=== PATIENT | male | born 1945 | race Caucasian/White ===

== ENCOUNTER 2021-02-09 08:14 | Emergency (ER) | payer MEDICARE ==
--- NOTE | 2021-02-09 09:02 | ED ---
General Adult HPI - General Chief complaint: Upper Respiratory Infection Stated complaint: Fever/cough/vomiting Time Seen by Provider: 02/09/21 08:25 Source: patient Mode of arrival: ambulatory Limitations: no limitations - History of Present Illness Initial comments: Dictation was produced using [employer] dictation software. please excuse any grammatical, word or spelling errors. This patient was cared for during a federal and state declared state of emergency secondary to Covid 19 Chief Complaint: 75-year-old male presents emergency department for fever and cough History of Present Illness: This 75-year-old male who presents to the emergency department for fever and cough. Symptoms began yesterday. Patient states that he has been having postnasal drip. States that he had a couple episodes of nausea and vomiting. Most of the day today he's been feeling fine. He has had his vaccinations for COVID-19. His second dose of moderna vaccine was in the beginning of January. No obvious sick contacts. Denies any abdominal pain. No rash. No burning on urination or any other urinary symptoms. The ROS documented in this emergency department record has been reviewed and confirmed by me. Those systems with pertinent positive or negative responses have been documented in the HPI. All other systems are other negative and/or noncontributory. PHYSICAL EXAM: General Impression: Alert and oriented x3, not in acute distress HEENT: Normocephalic atraumatic, extra-ocular movements intact, pupils equal and reactive to light bilaterally, mucous membranes moist. Cardiovascular: Heart regular rate and rhythm Chest: Able to complete full sentences, no retractions, no tachypnea Abdomen: abdomen soft, non-tender, non-distended, no organomegaly Musculoskeletal: Pulses present and equal in all extremities, no peripheral edema Motor: no focal deficits noted Neurological: CN II-XII grossly intact, no focal motor or sensory deficits noted Skin: Intact with no visualized rashes Psych: Normal affect and mood ED course: 75-year-old well-appearing male, vaccinated for COVID-19 presents emergency department for URI symptoms. vital signs upon arrival shows temperature 99.6, heart rate of 118, rest of vital signs within acceptable limits. Patient is well-appearing at bedside. Laboratory evaluation obtaining is leukocytosis of 20.7 with neutrophils of 18.4. Metabolic panel is unremarkable. Negative for influenza RSV or coronavirus per chest x-ray is nonacute. Patient reevaluated at bedside at 10:30 AM in stable medical condition. Disposition options were discussed with patient. He feels well and is having minor symptoms wants to be discharged. His primary care physician. He is reliable patient has good social situation can seek medical attention if he has any acute worsening symptoms. Patient understands that there is concerns of bacterial infection that his symptoms may acutely worsened causing worsening breathing. Patient given 1 dose of ceftriaxone. Given prescription for Augmentin and azithromycin. His agreeable to plan. Patient be discharged. - Related Data Previous Rx's Medication Instructions Recorded Amoxic-Pot Clav 875-125Mg 1 tab PO BID 7 Days #14 tab 02/09/21 [Augmentin 875-125] Azithromycin [Zithromax Z-pack] 0 mg PO DIRECTED #6 tab 02/09/21 Allergies Allergy/AdvReac Type Severity Reaction Status Date / Time No Known Allergies Allergy Verified 02/09/21 08:29 Review of Systems ROS Statement: Those systems with pertinent positive or pertinent negative responses have been documented in the HPI. ROS Other: All systems not noted in ROS Statement are negative. Past Medical History Past Medical History: No Reported History History of Any Multi-Drug Resistant Organisms: None Reported Past Surgical History: No Surgical Hx Reported Past Psychological History: No Psychological Hx Reported Smoking Status: Never smoker Past Alcohol Use History: Occasional Past Drug Use History: None Reported General Exam Limitations: no limitations Course Vital Signs 02/09/21 02/09/21 08:23 10:05 Temperature 99.6 F 98.8 F Pulse Rate 118 H 107 H Respiratory 21 18 Rate Blood Pressure 123/68 O2 Sat by Pulse 95 94 L Oximetry Medical Decision Making - Lab Data Result diagrams: 02/09/21 09:05 02/09/21 09:05 Lab Results 02/09/21 02/09/21 02/09/21 Range/Units 08:39 09:05 09:05 WBC 20.7 H (3.8-10.6) k/uL RBC 5.87 (4.30-5.90) m/uL Hgb 16.2 (13.0-17.5) gm/dL Hct 47.2 (39.0-53.0) % MCV 80.4 (80.0-100.0) fL MCH 27.5 (25.0-35.0) pg MCHC 34.3 (31.0-37.0) g/dL RDW 13.6 (11.5-15.5) % Plt Count 330 (150-450) k/uL MPV 6.3 Neutrophils % 89 % Lymphocytes % 4 % Monocytes % 4 % Eosinophils % 3 % Basophils % 1 % Neutrophils # 18.4 H (1.3-7.7) k/uL Lymphocytes # 0.8 L (1.0-4.8) k/uL Monocytes # 0.8 (0-1.0) k/uL Eosinophils # 0.6 (0-0.7) k/uL Basophils # 0.1 (0-0.2) k/uL Sodium 137 (137-145) mmol/L Potassium 4.8 (3.5-5.1) mmol/L Chloride 102 (98-107) mmol/L Carbon Dioxide 27 (22-30) mmol/L Anion Gap 8 mmol/L BUN 17 (9-20) mg/dL Creatinine 1.06 (0.66-1.25) mg/dL Est GFR (CKD-EPI)AfAm 80 (>60 ml/min/1.73 sqM) Est GFR (CKD-EPI)NonAf 69 (>60 ml/min/1.73 sqM) Glucose 125 H (74-99) mg/dL Calcium 9.7 (8.4-10.2) mg/dL Influenza Type A (PCR) Not Detected (Not Detectd) Influenza Type B (PCR) Not Detected (Not Detectd) RSV (PCR) Not Detected (Not Detectd) SARS-CoV-2 (PCR) Not Detected (Not Detectd) Disposition Clinical Impression: URI (upper respiratory infection) Disposition: HOME SELF-CARE Condition: Fair Instructions (If sedation given, give patient instructions): Upper Respiratory Infection (ED) Prescriptions: Amoxic-Pot Clav 875-125Mg [Augmentin 875-125] 1 tab PO BID 7 Days #14 tab Azithromycin [Zithromax Z-pack] 0 mg PO DIRECTED #6 tab Is patient prescribed a controlled substance at d/c from ED?: No Referrals: Josue Cornell DO [Primary Care Provider] - 1-2 days Time of Disposition: 10:37
[2021-02-09 09:17] LABS: Basophils # (A) 0.1 k/uL (0-0.2); Basophils % (A) 1 %; Eosinophils # (A) 0.6 k/uL (0-0.7); Eosinophils % (A) 3 %; HCT 47.2 % (39.0-53.0); HGB 16.2 gm/dL (13.0-17.5); Lymphocytes # (A) 0.8 k/uL (1.0-4.8); Lymphocytes % (A) 4 %; MCH 27.5 pg (25.0-35.0); MCHC 34.3 g/dL (31.0-37.0); MCV 80.4 fL (80.0-100.0); Mean Platelet Volume 6.3; Monocytes # (A) 0.8 k/uL (0-1.0); Monocytes % (A) 4 %; Neutrophils # (A) 18.4 k/uL (1.3-7.7); Neutrophils % (A) 89 %; Platelet Count 330 k/uL (150-450); RBC 5.87 m/uL (4.30-5.90); RDW 13.6 % (11.5-15.5); WBC 20.7 k/uL (3.8-10.6)
--- NOTE | 2021-02-09 09:23 | XR ---
EXAMINATION TYPE: XR chest 1V portable DATE OF EXAM: 02/09/2021 COMPARISON: None INDICATION: Cough, fever TECHNIQUE: Single frontal view of the chest is obtained. FINDINGS: The heart size is normal. The pulmonary vasculature is normal. The lungs are clear. IMPRESSION: 1. No acute pulmonary process.
[2021-02-09 09:29] LABS: Calcium 9.7 mg/dL (8.4-10.2); Potassium 4.8 mmol/L (3.5-5.1)
[2021-02-09 10:11] VITALS: RESP 18
[2021-02-09] MEDS ORDERED: cefTRIAXone IN SWFI 1,000 MG/10 ML SYRINGE IVP STA (10:13)
[2021-02-09 10:37] VITALS: BP 141/79; PULSE 100; TEMP 99.7
[2021-02-09] MEDS ORDERED: KETOROLAC 15 MG/ML 1 ML VIAL IM STA (10:37)
[2021-02-09] MEDS ORDERED: KETOROLAC 15 MG/ML 1 ML VIAL IVP STA (10:38)
== END 2021-02-09 10:48 | disposition home or self-care (01) ==
LOC: EC 08:14
DX: J06.9 Acute upper respiratory infection, unspecified (principal)
CPT/HCPCS: 36415; 80048; 85025; 87636; 71045; 99284; 96374; 96375; J0696; J1885

== ENCOUNTER 2021-07-03 22:25 | Emergency (ER) | payer MEDICARE ==
[2021-07-03 22:36] VITALS: BP 159/71; PULSE 84; RESP 20; TEMP 98.5
--- NOTE | 2021-07-03 23:10 | XR ---
EXAMINATION TYPE: XR ribs RT w pa chest xray DATE OF EXAM: 07/03/2021 COMPARISON: 02/09/2021 HISTORY: Fall. Rib pain TECHNIQUE: 5 views FINDINGS: Heart and mediastinum are normal. Lungs are clear. Diaphragm is normal. Bony thorax is inta ct. The right ribs appear intact. There is no pleural effusion or pneumothorax. IMPRESSION: No rib fracture seen. Normal chest. No adverse change.
[2021-07-03] MEDS ORDERED: CYCLOBENZAPRINE 5 MG TAB PO STA (23:54)
--- NOTE | 2021-07-03 23:56 | ED ---
Fall HPI - General Chief Complaint: Fall Stated Complaint: Rib pain from fall Time Seen by Provider: 07/03/21 23:34 Source: patient Mode of arrival: ambulatory - History of Present Illness Initial Comments: 75-year-old male presents to the emergency department with a chief complaint rib pain. Patient reports this started 2 days ago after he fell to the ground from a trip and fall accident. Patient reports he may to some jerking movement which causes him to have pain in the right-sided ribs. States there was no fracture medication injury into the wrist. States now the pain is exacerbated with left right rotation of his torso. Denies exacerbation of the pain when taking deep breaths. Denies any ecchymotic or erythematous regions along the ribs. Denies any unilateral leg swelling or dyspnea. - Related Data Previous Rx's Medication Instructions Recorded Amoxic-Pot Clav 875-125Mg 1 tab PO BID 7 Days #14 tab 02/09/21 [Augmentin 875-125] Azithromycin [Zithromax Z-pack] 0 mg PO DIRECTED #6 tab 02/09/21 Cyclobenzaprine [Flexeril] 5 mg PO TID PRN #15 tablet 07/03/21 Allergies Allergy/AdvReac Type Severity Reaction Status Date / Time No Known Allergies Allergy Verified 02/09/21 08:29 Review of Systems ROS Statement: Those systems with pertinent positive or pertinent negative responses have been documented in the HPI. ROS Other: All systems not noted in ROS Statement are negative. Past Medical History Past Medical History: No Reported History History of Any Multi-Drug Resistant Organisms: None Reported Past Surgical History: No Surgical Hx Reported Past Psychological History: No Psychological Hx Reported Smoking Status: Never smoker Past Alcohol Use History: Occasional Past Drug Use History: None Reported General Exam Limitations: no limitations General appearance: alert, in no apparent distress Head exam: Present: atraumatic, normocephalic, normal inspection Eye exam: Present: normal appearance, PERRL Pupils: Present: normal accommodation ENT exam: Present: normal exam, normal oropharynx, mucous membranes moist Neck exam: Present: normal inspection, full ROM. Absent: tenderness Respiratory exam: Present: normal lung sounds bilaterally, chest wall tenderness (Tenderness over the right side of the ribs). Absent: respiratory distress Cardiovascular Exam: Present: regular rate, normal rhythm, normal heart sounds. Absent: systolic murmur GI/Abdominal exam: Present: soft. Absent: distended, tenderness, guarding, rebound Extremities exam: Present: normal inspection, full ROM, normal capillary refill. Absent: tenderness, pedal edema, joint swelling Back exam: Present: normal inspection, full ROM. Absent: tenderness Neurological exam: Present: alert, oriented X3 Psychiatric exam: Present: normal affect, normal mood Skin exam: Present: warm, dry, intact, normal color Course Vital Signs 07/03/21 22:32 Temperature 98.5 F Pulse Rate 84 Respiratory 20 Rate Blood Pressure 159/71 O2 Sat by Pulse 96 Oximetry Medical Decision Making - Medical Decision Making 75-year-old male presents to emergency Department with a chief complaint rib pain. Physical examination, patient has tenderness over the right-sided ribs. Patient exacerbated with left and right rotation. X-ray of the chest and right ribs is unremarkable. Patient will be given Flexeril. I suspect the pain is likely musculoskeletal in nature at this time. Return parameters were discussed patient is understanding and agreeable. PCP follow-up advised. Case discussed with physician. Disposition Clinical Impression: Fall, Chest wall pain Disposition: HOME SELF-CARE Condition: Stable Instructions (If sedation given, give patient instructions): Rib Contusion (ED) Additional Instructions: Please return to the Emergency Department if symptoms worsen or any other concerns. Is patient prescribed a controlled substance at d/c from ED?: No Referrals: Josue Cornell DO [Primary Care Provider] - 1-2 days Time of Disposition: 23:56
== END 2021-07-04 00:40 | disposition home or self-care (01) ==
LOC: EC 22:25
DX: R07.89 Other chest pain (principal); W01.0XXA Fall on same level from slipping, tripping and stumbling without subsequent striking against object, initial encounter
CPT/HCPCS: 99283

== ENCOUNTER → 2023-01-05 | Outpatient (CLI) | payer MEDICARE ==
--- NOTE | 2023-01-05 15:24 | US ---
EXAMINATION TYPE: US carotid duplex BILAT DATE OF EXAM: 01/05/2023 COMPARISON: NONE CLINICAL HISTORY: H53.19 SUBJECTIVE VISUAL DISTURBANCES. Pt states vision disturbances TECHNIQUE: Carotid duplex ultrasound examination. Indirect Doppler criteria was utilized. FINDINGS: EXAM MEASUREMENTS: RIGHT: Peak Systolic Velocity (PSV) cm/sec ----- Right CCA: 110 ----- Right ICA: 187 ----- Right ECA: 122 ICA/CCA ratio: 1.7 RIGHT: End Diastole cm/sec ----- Right CCA: 14.3 ----- Right ICA: 37.0 ----- Right ECA: 6.6 LEFT: Peak Systolic Velocity (PSV) cm/sec ----- Left CCA: 137 ----- Left ICA: 211 ----- Left ECA: 178 ICA/CCA ratio: 1.5 LEFT: End Diastole cm/sec ----- Left CCA: 17.6 ----- Left ICA: 17.2 ----- Left ECA: 4.6 VERTEBRALS (direction of flow): Right Vertebral: Antegrade Left Vertebral: Antegrade Rhythm: Normal [employer] TESTING [employer]PERVISOR NOTES: Slightly elevated velocities bilaterally IMPRESSION: 50-69% stenosis of the bilateral carotid bifurcations by peak systolic velocity. Criteria for Assigning % of Stenosis / Diameter reduction (Estimation based on the indirect measurements of the internal carotid artery velocities (ICA PSV). 1. Normal (no stenosis)=ICA PSV < 125 cm/s: ratio < 2.0: ICA EDV<40 cm/s. 2. Less than 50% stenosis=ICA PSV < 125 cm/s: ratio < 2.0: ICA EDV<40 cm/s. 3. 50 to 69% stenosis=ICA PSV of 125 to 230 cm/s: ration 2.0 ? 4.0: ICA EDV 40-100 cm/s. 4. Greater than 70% stenosis to near occlusion= ICA PSV > 230 cm/s: ratio > 4.0: ICA EDV > 100 cm/s. 5. Near occlusion= ICA PSV velocities may be low or undetectable: variable ratio and ICA EDV. 6. Total occlusion=unable to detect flow.
--- NOTE | 2023-01-06 09:28 | CA ---
Transthoracic Echo Report Name: Mendez Lyn Age: 77 Gender: M : 1945 Exam Date: 01/05/2023 14:18 Exam Location: [place] [facility] Ht (in): 68 Wt (lb): 200 Ordering Physician: Олег Smith MD Attending/Referring Phys: Sharon Chu MD Traveling Passenger Agent [facility] Procedure CPT: Indications: i10 Cardiac Hx: Technical Quality: Good Contrast 1: Total Dose (mL): Contrast 2: Total Dose (mL): MEASUREMENTS (Male / Female) Normal Values 2D ECHO LV Diastolic Diameter PLAX 4.2 cm 4.2 - 5.9 / 3.9 - 5.3 cm LV Systolic Diameter PLAX 2.6 cm IVS Diastolic Thickness 1.1 cm 0.6 - 1.0 / 0.6 - 0.9 cm LVPW Diastolic Thickness 1.0 cm 0.6 - 1.0 / 0.6 - 0.9 cm LV Relative Wall Thickness 0.5 RV Internal Dim ED PLAX 3.2 cm LA Systolic Diameter LX 3.3 cm 3.0 - 4.0 / 2.7 - 3.8 cm LV Diastolic Volume MOD BP 51.2 cm??? 67 - 155 / 56 - 104 cm??? LV Systolic Volume MOD BP 22.8 cm??? 22 - 58 / 19 - 49 cm??? LV Ejection Fraction MOD BP 55.4 % >= 55 % LV Diastolic Volume MOD 4C 59.7 cm??? LV Systolic Volume MOD 4C 20.1 cm??? LV Ejection Fraction MOD 4C 66.4 % LV Diastolic Length 4C 6.3 cm LV Systolic Length 4C 5.1 cm LV Diastolic Volume MOD 2C 44.2 cm??? LV Systolic Volume MOD 2C 19.6 cm??? LV Ejection Fraction MOD 2C 55.6 % LV Diastolic Length 2C 6.3 cm LV Systolic Length 2C 3.8 cm LA Volume 45.1 cm??? 18 - 58 / 22 - 52 cm??? M-MODE Aortic Root Diameter MM 3.3 cm MV E Point Septal Separation 0.7 cm AV Cusp Separation MM 1.9 cm DOPPLER AV Peak Velocity 116.2 cm/s AV Peak Gradient 5.4 mmHg MV Area PHT 3.9 cm??? Mitral E Point Velocity 104.5 cm/s Mitral A Point Velocity 119.4 cm/s Mitral E to A Ratio 0.9 MV Deceleration Time 194.3 ms MV E' Velocity 8.8 cm/s Mitral E to MV E' Ratio 11.9 TR Peak Velocity 280.0 cm/s TR Peak Gradient 31.4 mmHg Right Ventricular Systolic Press 36.0 mmHg FINDINGS Left Ventricle Left ventricular ejection fraction is estimated at 55-60 %. Left ventricular cavity size normal. Borderline left ventricular hypertrophy. Normal left ventricular wall motion. Right Ventricle Normal right ventricular size and function. Right Atrium Normal right atrial size. Left Atrium Normal left atrial size. Mitral Valve Mitral valve thickened. Mild mitral annular calcification. Trace to mild mitral regurgitation. Aortic Valve Trileaflet aortic valve. Focal thickening of the aortic valve cusps. Mild aortic regurgitation. Tricuspid Valve Structurally normal tricuspid valve. Mild tricuspid regurgitation. Pulmonic Valve Structurally normal pulmonic valve. Trace pulmonic regurgitation. Pericardium Normal pericardium. No pericardial effusion. Aorta Normal size aortic root and proximal ascending aorta. CONCLUSIONS Left ventricular ejection fraction 55-60% RVSP 36 Trace to mild mitral regurgitation Mild mitral calcification Mild aortic regurgitation Mild tricuspid regurgitation Previewed by: Dr. Angelo Nunes DO (Electronically Signed) Final Date: 06 January 2023 09:28
== END | disposition home or self-care (01) ==
LOC: RADECHMAIN 14:10
PROVIDERS: ATTEND Family Medicine
DX: I65.23 Occlusion and stenosis of bilateral carotid arteries (principal); I36.1 Nonrheumatic tricuspid (valve) insufficiency; I34.0 Nonrheumatic mitral (valve) insufficiency; I35.1 Nonrheumatic aortic (valve) insufficiency; I34.89 Other nonrheumatic mitral valve disorders; H53.19 Other subjective visual disturbances; I10 Essential (primary) hypertension
CPT/HCPCS: 93306; 93880

== ENCOUNTER 2023-01-26 07:02 | Inpatient (IN) | payer MEDICARE ==
[2023-01-26] MEDS ORDERED: Antibiotics per Pharmacy 1 EACH MISC MISCELLANE PRN (07:40)
[2023-01-26] MEDS ORDERED: HEPARIN SODIUM,PORCINE/PF 5,000 UNIT/0.5 ML SYRINGE SQ PRN (07:40)
[2023-01-26] MEDS ORDERED: PEG 3350 (420 GM/BTL) + LYTES 4,000 ML BOTTLE PO ONE (07:40)
--- NOTE | 2023-01-26 07:40 | P.GSHP ---
History of Present Illness H&P Date: 01/26/23 CHIEF COMPLAINT: Blood per rectum HISTORY OF PRESENT ILLNESS: The patient is a 77-year-old male who presents with blood per rectum. He had recent colonoscopy with finding of sigmoid mass. He underwent cardiac risks assessment. He presents today for endoscopy with tattooing, correction of anemia, sigmoid resection and inpatient hospitalization. PAST MEDICAL HISTORY: Please see list. PAST SURGICAL HISTORY: Please see list. MEDICATIONS: Please see list. ALLERGIES: Please see list. SOCIAL HISTORY: No illicit drug use FAMILY HISTORY: No reports of Crohn disease or ulcerative colitis. REVIEW OF ORGAN SYSTEMS: CONSTITUTIONAL: Denies any fever or chills. HEENT: Denies any trouble with vision or nosebleeds. No difficulty swallowing. She is hard of hearing. LYMPHATIC: The patient denies any lumps and bumps around the neck. ENDOCRINE: Denies any thyroid disorders. Has blood sugar glucose intolerance. RESPIRATORY: Denies pneumonia. Denies any troubles with breathing or dyspnea on exertion. CARDIOVASCULAR: Had recent echo demonstrates tolerance stress test. GASTROINTESTINAL: Has constipation and recent colonoscopy 1 week ago. GENITOURINARY: Has increased urinary frequency. MUSCULOSKELETAL: Has back pain, stiffness, joint arthritis. NEUROLOGIC: Denies any numbness or tingling along the distal extremities. No seizure disorders or headaches. PSYCHIATRIC: Denies depression or suidical ideation. HEMATOLOGIC: Denies any abnormal bleeding or bruising. PHYSICAL EXAM: VITAL SIGNS: Stable GENERAL: Well-developed pleasant in no acute distress. HEENT: No scleral icterus. Extraocular movements grossly intact. Moist buccal mucosa. He is hard of hearing. NECK: Supple without lymphadenopathy. CHEST: Unlabored respirations. Equal bilateral excursions. CARDIOVASCULAR: Regular rate and rhythm. Distal 2+ pulses. ABDOMEN: Soft, nontender, nondistended. MUSCULOSKELETAL: No clubbing, cyanosis, or edema. NERUO: Regular 2-12 grossly intact. PSYCH: Alert and oriented to person place and time. ASSESSMENT: 1. Colon cancer with anemia, blood per PLAN: 1. Benefits and risks of surgical intervention sigmoid resection described a possible ostomy creation Robotic-assisted approach was also described. 2. Enhanced colon recovery program. 3. DVT prophylaxis. 4. Antibiotic prophylaxis. 5. Endoscopic tattooing of colonic tumor advised Past Medical History Past Medical History: Cancer, GERD/Reflux, Hyperlipidemia, Hypertension, Osteoarthritis (OA), Prostate Disorder Additional Past Medical History / Comment(s): melanoma, joint pain, hx of shingles., states hx blood in stool. History of Any Multi-Drug Resistant Organisms: None Reported Past Surgical History: Adenoidectomy, Tonsillectomy Additional Past Surgical History / Comment(s): T & A (CHILD), COLONOSCOPY Past Anesthesia/Blood Transfusion Reactions: No Reported Reaction Additional Past Anesthesia/Blood Transfusion Reaction / Comment(s): no blood tx hx Smoking Status: Former smoker - Past Family History Mother Family Medical History: No Reported History Medications and Allergies Home Medications Medication Instructions Recorded Confirmed Type Omeprazole Magnesium [PriLOSEC OTC] 20 mg PO DAILY 12/08/22 01/26/23 History Metoprolol Succinate (ER) [Toprol 50 mg PO DAILY 01/24/23 01/26/23 History Xl] Tamsulosin HCl [Flomax] 0.4 mg PO DAILY 01/24/23 01/26/23 History Allergies Allergy/AdvReac Type Severity Reaction Status Date / Time No Known Allergies Allergy Verified 01/26/23 07:27
[2023-01-26] MEDS ORDERED: PROPOFOL 10 MG/ML 20 ML VIAL IV ONE (07:45)
[2023-01-26 12:56] LABS: ALT 48 U/L (4-49); AST 37 U/L (17-59); African American GFR (CKD) >90 (>60 ml/min/1.73 sqM); Albumin 4.5 g/dL (3.5-5.0); Alkaline Phosphatase 109 U/L (38-126); Anion Gap 8 mmol/L; Blood Urea Nitrogen 13 mg/dL (9-20); Calcium 9.5 mg/dL (8.4-10.2); Carbon Dioxide 30 mmol/L (22-30); Chloride 103 mmol/L (98-107); Glucose 94 mg/dL (74-99); Non-African American GFR(CKD) 78 (>60 ml/min/1.73 sqM); Potassium 4.3 mmol/L (3.5-5.1); Sodium 141 mmol/L (137-145); Total Bilirubin 0.7 mg/dL (0.2-1.3); Total Protein 7.6 g/dL (6.3-8.2)
[2023-01-26 13:03] LABS: Basophils # (A) 0.1 k/uL (0-0.2); Basophils % (A) 1 %; Eosinophils # (A) 0.4 k/uL (0-0.7); Eosinophils % (A) 5 %; HCT 47.5 % (39.0-53.0); HGB 15.4 gm/dL (13.0-17.5); Lymphocytes # (A) 1.2 k/uL (1.0-4.8); Lymphocytes % (A) 13 %; MCH 26.6 pg (25.0-35.0); MCHC 32.5 g/dL (31.0-37.0); Mean Platelet Volume 6.9; Monocytes # (A) 0.6 k/uL (0-1.0); Monocytes % (A) 6 %; Neutrophils # (A) 6.7 k/uL (1.3-7.7); Neutrophils % (A) 74 %; Platelet Count 298 k/uL (150-450); RDW 13.9 % (11.5-15.5)
[2023-01-26] MEDS: metroNIDAZOLE 500 MG TAB PO SCH ×3 (13:53→22:57)
[2023-01-26] MEDS: NEOMYCIN 500 MG TAB PO SCH ×3 (13:54→22:57)
[2023-01-26] MEDS ORDERED: SODIUM CHLORIDE 0.9% 2,000 ML IV ONE (14:37)
--- NOTE | 2023-01-26 14:43 | P.PCN ---
Date of Procedure: 01/26/23 Description of Procedure: PREOPERATIVE DIAGNOSIS: Rectal bleeding Malignant colon mass POSTOPERATIVE DIAGNOSIS: Malignant colon sigmoid neoplasm Sigmoid diverticulosis Internal hemorrhoids, grade 2 OPERATION: Colonoscopy with injection of Ana Paula ink, 4 mL SURGEON: Sharon Chu MD. ANESTHESIA: MAC. INDICATIONS: The patient is an 77-year-old male who presents with rectal bleeding. He has recent diagnosis of malignancy on pathology: Mass. Benefits and risks were described and informed consent was obtained. DESCRIPTION OF PROCEDURE: The patient had undergone Sutab prep. The patient had been brought into the operating room and laid in the left lateral decubitus position. After adequate intravenous sedation, the rectum was examined with 2% lidocaine jelly. No external hemorrhoids were encountered. The rectal tone was within normal limits. No lesions were palpated in the rectal vault. An Olympus colonoscope was advanced where a tumor along the sigmoid colon between 30 cm to 35 cm was identified. Injection of Ana Paula ink circumferentially 4 mL was placed. The prep was excellent. Sigmoid diverticulosis was encountered. No evidence of focal colitis was found. Retroflexion of the scope demonstrated grade 2 internal hemorrhoids without active bleeding or inflammation. The colon was desufflated. The patient had tolerated the procedure well. Withdrawal time was over 6 minutes. FINDINGS: Aronchick preparation quality scale 1 (1-5) Internal hemorrhoids, grade 2 External hemorrhoids, grade 2. No arteriovenous malformations. Sigmoid diverticulosis Fixed 75% circumferential tumor incorporating easily friable sigmoid colon between 30 cm to 35 cm was identified. Injection of Ana Paula ink circumferentially 4 mL was placed. No focal colitis. RECOMMENDATIONS: Immediate inpatient admission for sigmoid neoplasm resection via robotic approach
[2023-01-26] MEDS: SODIUM CHLORIDE 0.9% 1,000 ML IV SCH (15:07)
[2023-01-26] MEDS ORDERED: ONDANSETRON 4 MG/2 ML VIAL IVP PRN (20:48)
[2023-01-26] MEDS: PANTOPRAZOLE 40 MG TABLET PO SCH (21:21)
[2023-01-27] MEDS ORDERED: metroNIDAZOLE-NS PMX 500 MG in SALINE 1 100ML.BAG IVPB PRN (05:00)
[2023-01-27] MEDS: SODIUM CHLORIDE 0.9% 1,000 ML IV SCH ×3 (05:07→21:00)
[2023-01-27] MEDS: LACTATED RINGERS 1,000 ML IV SCH ×2 (06:01→08:27)
[2023-01-27] MEDS: TAMSULOSIN 0.4 MG CAP.ER.24H PO SCH (06:18)
[2023-01-27 06:31] LABS: Glucose,Whole Blood 81 mg/dL (70-110)
[2023-01-27] MEDS ORDERED: ACETAMINOPHEN TAB 500 MG TAB PO PRN (07:00)
[2023-01-27] MEDS ORDERED: ALVIMOPAN 12 MG CAPSULE PO PRN (07:00)
[2023-01-27] MEDS ORDERED: HEPARIN SODIUM,PORCINE/PF 5,000 UNIT/0.5 ML SYRINGE SQ PRN (07:00)
[2023-01-27] MEDS ORDERED: fentaNYL (PF) 50 MCG/ML 2 ML AMP IVP ONE (07:14)
[2023-01-27] MEDS ORDERED: MIDAZOLAM 2 MG/2 ML VIAL IVP ONE (07:14)
[2023-01-27] MEDS ORDERED: KETAMINE 10 MG/ML 20 ML VIAL ONE (07:29)
[2023-01-27] MEDS ORDERED: ROPIVACAINE 5 MG/ML 30 ML VIAL ONE (07:29)
[2023-01-27] MEDS ORDERED: fentaNYL (PF) 50 MCG/ML 2 ML AMP ONE (07:29)
[2023-01-27] MEDS ORDERED: PHENYLEPHRINE-0.9% NACL SYG 1,000 MCG/10 ML SYRINGE ONE (07:29)
[2023-01-27] MEDS ORDERED: ePHEDrine 50 MG/ML 1 ML VIAL ONE (07:29)
[2023-01-27] MEDS ORDERED: SODIUM CHLORIDE 0.9% (PF) 10 ML VIAL ONE (07:29)
[2023-01-27] MEDS ORDERED: WATER FOR INJECTION, STERILE 10 ML VIAL IV ONE (07:29)
[2023-01-27] MEDS ORDERED: LIDOCAINE 2% INJ 20 MG/ML (2 ML VIAL) ONE (07:29)
[2023-01-27] MEDS ORDERED: GLYCOPYRROLATE 0.2 MG/ML 2 ML VIAL ONE (07:29)
[2023-01-27] MEDS ORDERED: NEOSTIGMINE 1 MG/ML 10 ML VIAL ONE (07:29)
[2023-01-27] MEDS ORDERED: PROPOFOL 10 MG/ML 20 ML VIAL IV ONE (07:29)
[2023-01-27] MEDS ORDERED: ROCURONIUM 10 MG/ML (5 ML VIAL) IV ONE (07:29)
[2023-01-27] MEDS ORDERED: LACTATED RINGERS 1,000 ML IV ONE ×3 (07:53→11:07)
[2023-01-27] MEDS ORDERED: BUPIVACAIN-EPI 0.25%-1:200,000 30 ML VIAL SQ ONE (08:25)
[2023-01-27] MEDS: PANTOPRAZOLE 40 MG TABLET PO SCH (08:28)
--- NOTE | 2023-01-27 11:57 | P.ANPRN ---
Procedure Note - Anesthesia - Nerve Block Performed Bilateral Erector Spinae Single Time Out Performed: Yes ([id number]) Date of Procedure: 01/27/23 Procedure Start Time: 07:14 Procedure Stop Time: 07:19 Location of Patient: PreOp Indication: Acute Post-Operative Pain, Requested by Surgeon Specifically requested for management of pain by : Sharon Chu Sedation Type: Sedate with meaningful contact maintained Preparation: Sterile Prep Position: Sitting Catheter: None Needle Types: Pajunk Needle Gauge: 21 Ultrasound used to visualize needle placement: Yes Ultrasound used to observe medication spread: Yes Injectate: 0.5% Ropivacaine (see comment for volume) (15cc +10cc nacl pf each side) Blood Aspirated: No Pain Paresthesia on Injection Noted: No Resistance on Injection: Normal Image Stored and Saved: Yes Events: Uneventful and Well Tolerated
[2023-01-27] MEDS ORDERED: HYDROmorphone 0.5 MG/0.5 ML SYRINGE IVP ONE ×4 (11:59→12:46)
--- NOTE | 2023-01-27 13:09 | P.OP ---
Date of Procedure: 01/27/23 Description of Procedure: SURGEON: MAHI RESENDIZ MD PREOPERATIVE DIAGNOSES: 1. Sigmoid colon cancer with rectal bleeding 2. Hypertensive heart disease 3. Obstructive uropathy due to prostate disorder 4. Sigmoid diverticulosis POSTOPERATIVE DIAGNOSES: 1. Sigmoid colon cancer with rectal bleeding 2. Hypertensive heart disease 3. Obstructive uropathy due to prostate disorder 4. Sigmoid diverticulosis OPERATION: 1. Robotic-assisted daVinci Xi sigmoid colectomy with low anterior resection using 29 mm ILS, powered Ethicon stapler 2. Intraoperative colonoscopy Anesthesia: GETA, local, block Estimated Blood Loss (ml): 10 Pathology: 1. Sigmoid colon 2. EEA donuts 3. Proximal colotomy Condition: stable Disposition: floor COMPLICATIONS: None. Operative Findings: 1. Sigmoid colon cancer along posterior wall, 5 cm mid sigmoid colon 2. Anastomosis with EEA stapler 29 mm 3. No tension or torsion along the anastomosis 4. Doughnuts thick and both sides and viable 5. Moderately redundant sigmoid colon without tension at anastomosis 6. No peritoneal studding 7. Negative leak test with viable anastomosis. 8. Specimen extraction use an Endo Catch bag, 15 mm INDICATIONS: The patient is a 77-year-old male who presents with colon cancer. He had a colonoscopy confirming a partial large bowel obstruction with bleeding from the tumor. Benefits and risks of surgical intervention was described in detail including infection, injury to the ureter, colostomy creation, possibilit y for additional surgery was discussed at length. Informed consent was obtained. All questions of the patient and family were answered. DESCRIPTION: Earlier the patient had undergone a bowel prep using the enhanced colon recovery program. The patient was transferred to the operating room and placed supine. After general induction, the abdomen was prepped and draped in standard sterile fashion. Ioban was placed along the abdomen to minimize any contamination of skin floor. A Tao catheter was placed. After a timeout protocol was performed, attention was then brought to the left upper quadrant whereby a 0 degree 5 mm laparoscopic trocar entry was performed. The abdominal cavity was entered and insufflated to 15 mmHg pressure, which was tolerated well. Diagnostic laparoscopy confirmed moderately redundant sigmoid colon without peritoneal metastasis. The small bowel was unremarkable. Next a robotic 12-mm trocar was placed along the right lateral abdominal wall 20 cm superior from the pelvis. Two 8 mm ports were placed along the upper abdomen. Ports were placed 10 cm apart from each other including 20 cm away from the target anatomy of the left pelvis. The 12-mm port was exchanged for an 8 mm robotic port at the left upper quadrant. The robot was docked along the left lateral abdomen. The patient was positioned in steep Trendelenburg position at 21-degrees. Using atraumatic graspers and vessel sealer, the robotic system was docked and primed as described. Instruments were interchanged by the residential assistant including hook cautery, needle chair car driver, robotic stapler and vessel sealer. The robot stapler was prepared along the right lateral abdominal wall. The stapler 12-mm port was arranged along the right lateral abdominal wall. Next, attention was brought to identify the sigmoid colon. A stay suture using 3- 0 silk was placed along the anterior serosa of the redundant sigmoid colon 5 cm proximal and distal to the tattoo. The sigmoid mesentery was mobilized using a vessel sealer whereby the descending colon was marked and tagged. Using multiple fires of the robot stapler 60 mm black load, the proximal sigmoid colon was divided. The mesentery of the sigmoid colon was mobilized towards the pelvic brim and sacral promontory using a vessel sealer. Next, the sigmoid colon was divided using the robotic stapler 60 mm black staple loads. The rest of the sigmoid colon mesentery was mobilized using vessel sealer. Additionally, the sigmoid colon was mobilized onto the colon to minimize injury to the ureters. I went to the foot of the [facility] to confirm sizers and placement of 29-mm ILS stapler. I re-scrubbed into the case. The robotic arms were temporarily undocked. A 29-mm anvil was placed with a 3-0 Vicryl sutured at the tip of the anvil cytology technologist. The the anvil was placed via the left upper quadrant 12 mm port. All robotic arms were re-docked. I went back to the console. The staple line was opened using cautery. The anvil was entered into the proximal descending colon. The colotomy was sewn using 3-0 silk using horizontal mattress suture. The colotomy was closed using 60 mm black load. Next, the sharp tip of the anvil cytology technologist was brought through the staple line. The anvil cytology technologist was removed from the abdomen using empty clip appliers. I went to the foot of the bed to place powered 29 mm Ethicon stapler via the rectum. The anvil and stapler were mated for 1 minute. The doughnuts were intact on both sides and thick. An intraoperative leak test was performed as I inserted the colonoscope to the anastomosis. The anastomosis identified at 25 cm from anal verge. No bleeding or leaks were identified. Endoscopic images were obtained. Irrigation was placed in the pelvis and no air leaks were identified. Irrigation fluid was aspirated from the pelvis until dry. I went back to the console. All sponges and needles were removed from the abdominal cavity. The robot was undocked. I re-scrubbed into the case. Via the left upper quadrant port, the sigmoid colon was removed using 15 mm Endo Catch bag. All sponges were removed from the abdominal cavity. The left upper quadrant incision was widened to 3-cm. No contamination had occurred throughout the case. The fascial defect was oversewn using 0 Vicryl and a Rick Adler. Next all pneumoperitoneum was evacuated from the abdominal cavity. The 8-mm trocar sites were reapproximated using 4-0 Monocryl in an interrupted subcuticular fashion. Local anesthetic was infiltrated to all wounds for postop analgesia. All incisions were also cleansed with diluted hydrogen peroxide. An Optifoam surgical dressing was placed over the epigastrium of the colon extraction site and drain site. Liquid glue was applied to the rest of the skin incisions. The patient had tolerated the procedure well. The patient was extubated successfully. The patient was transferred to the postanesthesia care unit in stable condition.
[2023-01-27] MEDS ORDERED: BENZOCAINE/MENTHOL LOZENG 1 EACH LOZENGE MUCOUS MEM PRN (14:14)
[2023-01-27] MEDS ORDERED: METOCLOPRAMIDE 5 MG/ML 2 ML VIAL IVP PRN (14:14)
[2023-01-27] MEDS ORDERED: SODIUM CHLORIDE 0.9% 1,000 ML IV ONE (14:16)
[2023-01-27] MEDS: METOPROLOL SUCCINATE (ER) 50 MG TAB.ER.24H PO SCH (14:17)
[2023-01-27] MEDS: ACETAMINOPHEN TAB 500 MG TAB PO SCH ×2 (14:34→23:37)
[2023-01-27] MEDS: KETOROLAC 15 MG/ML 1 ML VIAL IVP SCH ×3 (14:35→23:38)
[2023-01-27] MEDS: SIMETHICONE 40 MG/0.6 ML DROPS 2,000 MG/30 ML BOTTLE PO SCH ×3 (15:19→21:10)
[2023-01-27] MEDS: HYDROmorphone 1 MG/ML 1 ML SYRINGE IVP PRN (15:38)
[2023-01-27] MEDS: metroNIDAZOLE-NS PMX 500 MG in SALINE 1 100ML.BAG IVPB SCH (17:24)
[2023-01-27 17:35] LABS: ALT 33 U/L (4-49); AST 33 U/L (17-59); African American GFR (CKD) >90 (>60 ml/min/1.73 sqM); Albumin 3.3 g/dL (3.5-5.0); Albumin/Globulin Ratio 1.3; Alkaline Phosphatase 101 U/L (38-126); Anion Gap 11 mmol/L; Blood Urea Nitrogen 10 mg/dL (9-20); Calcium 8.1 mg/dL (8.4-10.2); Carbon Dioxide 16 mmol/L (22-30); Chloride 111 mmol/L (98-107); Globulin 2.5 g/dL; Glucose 125 mg/dL (74-99); Non-African American GFR(CKD) 86 (>60 ml/min/1.73 sqM); Potassium 4.4 mmol/L (3.5-5.1); Sodium 138 mmol/L (137-145); Total Bilirubin 0.6 mg/dL (0.2-1.3); Total Protein 5.8 g/dL (6.3-8.2)
[2023-01-27 18:44] LABS: Basophils % (A) 0 %; Eosinophils % (A) 0 %; HGB 13.1 gm/dL (13.0-17.5); Lymphocytes # (A) 0.6 k/uL (1.0-4.8); Lymphocytes % (A) 6 %; MCH 27.4 pg (25.0-35.0); MCHC 32.8 g/dL (31.0-37.0); MCV 83.6 fL (80.0-100.0); Mean Platelet Volume 7.2; Monocytes # (A) 0.5 k/uL (0-1.0); Monocytes % (A) 6 %; Neutrophils # (A) 8.4 k/uL (1.3-7.7); Neutrophils % (A) 88 %; Platelet Count 219 k/uL (150-450); RBC 4.78 m/uL (4.30-5.90); WBC 9.6 k/uL (3.8-10.6)
[2023-01-27] MEDS: HEPARIN SODIUM,PORCINE/PF 5,000 UNIT/0.5 ML SYRINGE SQ SCH (20:59)
[2023-01-27] MEDS ORDERED: FAMOTIDINE 20 MG/2 ML VIAL IV SCH (21:00)
[2023-01-27] MEDS ORDERED: NALOXONE 0.4 MG/ML 1 ML VIAL IV PRN (21:29)
[2023-01-27] MEDS: GABAPENTIN 300 MG CAP PO SCH (22:14)
[2023-01-27] MEDS: fentaNYL PCA 500 MCG/50 ML BAG IV SCH (23:31)
[2023-01-28] MEDS: metroNIDAZOLE-NS PMX 500 MG in SALINE 1 100ML.BAG IVPB SCH ×3 (00:42→16:35)
[2023-01-28] MEDS: LACTATED RINGERS 1,000 ML IV SCH (04:00)
[2023-01-28] MEDS: SODIUM CHLORIDE 0.9% 1,000 ML IV SCH ×3 (04:09→21:15)
[2023-01-28] MEDS: ACETAMINOPHEN TAB 500 MG TAB PO SCH ×5 (06:45→23:49)
[2023-01-28] MEDS: PANTOPRAZOLE 40 MG TABLET PO SCH (06:58)
[2023-01-28] MEDS: KETOROLAC 15 MG/ML 1 ML VIAL IVP SCH ×4 (06:58→23:48)
[2023-01-28] MEDS: SIMETHICONE 40 MG/0.6 ML DROPS 2,000 MG/30 ML BOTTLE PO SCH ×4 (08:09→21:12)
[2023-01-28] MEDS: GABAPENTIN 300 MG CAP PO SCH ×3 (08:09→21:11)
[2023-01-28] MEDS: ALVIMOPAN 12 MG CAPSULE PO SCH ×2 (08:09→21:11)
[2023-01-28] MEDS: TAMSULOSIN 0.4 MG CAP.ER.24H PO SCH (08:09)
[2023-01-28] MEDS: METOPROLOL SUCCINATE (ER) 50 MG TAB.ER.24H PO SCH (08:09)
[2023-01-28] MEDS: HEPARIN SODIUM,PORCINE/PF 5,000 UNIT/0.5 ML SYRINGE SQ SCH ×2 (08:09→21:11)
--- NOTE | 2023-01-28 09:28 | P.PN ---
Progress Note - Text Progress Note Date: 01/28/23 The patient is resting in his bed. He has not moved from his bed today. He states his incisional pain is okay. He is currently on fentanyl SUPERVISOR SHUTTLE FITTING. He has not had any breakfast this morning. On exam vital signs are stable. Abdomen soft. Status post sigmoid colectomy. Patient may be discharged home later today if he feels better.
--- NOTE | 2023-01-28 17:14 | P.CONS ---
History of Present Illness - Reason for Consult Consult date: 01/28/23 medical management Requesting physician: Sharon Chu - History of Present Illness This is a 77 year old male history of gerd, hypertension, former smoker. Patient is postoperative day #1 sigmoid colectomy. Patient was found to have sigmoid mass and underwent laproscopic sigmoid colectomy. Postoperative he is monitored sitting up in chair. Reports minimal abdominal discomfort. Passing gas. Has not had bowel movement yet. He is wearing abdominal binder. No other acute complaints. He wants to discharge home today. He is currently on entereg, IV cefazolin, IV metronidazole. He has fentanyl PROJECT OFFICER in place. On room air and blood pressure 119/69. Plan to remove indwelling catheter today for voiding trial. He does have history of BPH also and is maintained on flomax which has been resumed. Labs are essentially unremarkable. REVIEW OF SYSTEMS: CONSTITUTIONAL: No fever, no malaise, no fatigue. HEENT: No recent visual problems or hearing problems. Denied any sore throat. CARDIOVASCULAR: No chest pain, orthopnea, PND, no palpitations, no syncope. PULMONARY: No shortness of breath, no cough, no hemoptysis. GASTROINTESTINAL: No diarrhea, no nausea, no vomiting, no abdominal pain. NEUROLOGICAL: No headaches, no weakness, no numbness. HEMATOLOGICAL: Denies any bleeding or petechiae. GENITOURINARY: Denies any burning micturition, frequency, or urgency. MUSCULOSKELETAL/RHEUMATOLOGICAL: Denies any joint pain, swelling, or any muscle pain. ENDOCRINE: Denies any polyuria or polydipsia. The rest of the 14-point review of systems is negative. PHYSICAL EXAMINATION: GENERAL: The patient is alert and oriented x3, not in any acute distress. Well developed, well nourished. HEENT: Pupils are round and equally reacting to light. EOMI. No scleral icterus. No conjunctival pallor. Normocephalic, atraumatic. No pharyngeal erythema. No thyromegaly. CARDIOVASCULAR: S1 and S2 present. No murmurs, rubs, or gallops. PULMONARY: Chest is clear to auscultation, no wheezing or crackles. ABDOMEN: Soft, nontender, nondistended, normoactive bowel sounds. No palpable organomegaly. Post surgical abdomen abdominal binder in place, laproscopic incisions are clean and dry MUSCULOSKELETAL: No joint swelling or deformity. EXTREMITIES: No cyanosis, clubbing, or pedal edema. NEUROLOGICAL: Gross neurological examination did not reveal any focal deficits. SKIN: No rashes. Assessment and Plan Assessment Hx sigmoid colon cancer had rectal bleeding patient is postoperative day #1 lap roscopic sigmoid colectomy Hx hypertension currently normotensive History of BPH maintained on flomax Former smoker GI prophylaxis DVT prophylaxis as per primary Full Code Plan Continue home medications Voiding trial Continue supportive care and increase activity level Possible D/C home in the next 24-48 hrs when cleared by primary Thank you kindly for this consultation The impression and plan of care has been dictated by Mitzi Pradhan Nurse Practitioner as directed. Dr. Chandrakant MD I have performed a history and physical examination and medical decision making of this patient, discussed the same with the dictator, and agree with the dictators assessment and plan as written, documented as a scribe. Based on total visit time, I have performed more than 50% of this visit. Past Medical History Past Medical History: Cancer, GERD/Reflux, Hyperlipidemia, Hypertension, Osteoarthritis (OA), Prostate Disorder Additional Past Medical History / Comment(s): melanoma, joint pain, hx of shingles, states hx blood in stool. History of Any Multi-Drug Resistant Organisms: None Reported Past Surgical History: Adenoidectomy, Tonsillectomy Additional Past Surgical History / Comment(s): T & A (CHILD), COLONOSCOPY 01/26/23, sigmoid resection planned for 01/27/23 Past Anesthesia/Blood Transfusion Reactions: No Reported Reaction Additional Past Anesthesia/Blood Transfusion Reaction / Comm: no blood tx hx Past Psychological History: No Psychological Hx Reported Smoking Status: Former smoker Past Alcohol Use History: Occasional Additional Past Alcohol Use History / Comment(s): quit smoking at 63 yrs old .,started smoking at age 19 Past Drug Use History: None Reported - Past Family History Mother Family Medical History: Coronary Artery Disease (CAD) Medications and Allergies Home Medications Medication Instructions Recorded Confirmed Type Omeprazole Magnesium [PriLOSEC OTC] 20 mg PO DAILY 12/08/22 01/26/23 History Metoprolol Succinate (ER) [Toprol 50 mg PO DAILY 01/24/23 01/26/23 History XL] Tamsulosin HCl [Flomax] 0.4 mg PO DAILY 01/24/23 01/26/23 History Acetaminophen Tab [Tylenol Tab] 1,000 mg PO Q6HR PRN #30 tablet 01/27/23 Rx Cyclobenzaprine [Flexeril] 10 mg PO TID #30 tab 01/27/23 Rx Ibuprofen [Motrin] 600 mg PO Q8HR PRN #30 tab 01/27/23 Rx Simethicone 40 mg/0.6 ml Drops 40 mg PO Q6HR PRN #30 ml 01/27/23 Rx [Mylicon Drops] Allergies Allergy/AdvReac Type Severity Reaction Status Date / Time No Known Allergies Allergy Verified 01/26/23 07:27 Physical Exam Vitals: Vital Signs Temp Pulse Pulse Pulse Resp BP BP 01/28/23 07:37 98.6 F 76 17 132/70 01/28/23 01:18 98.8 F 72 17 125/66 01/27/23 19:49 98.2 F 77 16 124/69 01/27/23 14:53 78 155/73 01/27/23 14:39 85 146/76 01/27/23 14:23 83 153/78 01/27/23 14:12 97.2 F L 90 16 155/72 01/27/23 14:08 52 L 155/72 01/27/23 13:00 76 16 138/73 01/27/23 12:46 93 16 138/73 01/27/23 12:31 83 16 133/62 01/27/23 12:16 77 16 123/57 01/27/23 12:00 82 16 123/62 01/27/23 11:45 88 16 117/60 01/27/23 11:30 88 12 118/59 01/27/23 11:27 97 F L 83 12 130/60 Pulse Ox 01/28/23 07:37 94 L 01/28/23 01:18 96 01/27/23 19:49 93 L 01/27/23 14:53 96 01/27/23 14:39 97 01/27/23 14:23 95 01/27/23 14:12 100 01/27/23 14:08 100 01/27/23 13:00 100 01/27/23 12:46 100 01/27/23 12:31 100 01/27/23 12:16 100 01/27/23 12:00 100 01/27/23 11:45 100 01/27/23 11:30 100 01/27/23 11:27 96 Intake and Output 01/27/23 01/28/23 01/28/23 22:59 06:59 14:59 Intake Total 240 Output Total 500 550 Balance -260 -550 Intake: Oral 240 Output: Urine 500 550 Uretheral (Tao) 500 550 Other: Voiding Method Indwelling Catheter # Voids 0 Results CBC & Chem 7: 01/27/23 18:26 01/27/23 13:55 Labs: Abnormal Lab Results - Last 24 Hours (Table) 01/27/23 01/27/23 Range/Units 13:55 18:26 Neutrophils # 8.4 H (1.3-7.7) k/uL Lymphocytes # 0.6 L (1.0-4.8) k/uL Chloride 111 H (98-107) mmol/L Carbon Dioxide 16 L (22-30) mmol/L Glucose 125 H (74-99) mg/dL Calcium 8.1 L (8.4-10.2) mg/dL Total Protein 5.8 L (6.3-8.2) g/dL Albumin 3.3 L (3.5-5.0) g/dL Assessment and Plan Time with Patient: Less than 30
[2023-01-28] MEDS: fentaNYL PCA 500 MCG/50 ML BAG IV SCH (19:18)
[2023-01-29] MEDS: metroNIDAZOLE-NS PMX 500 MG in SALINE 1 100ML.BAG IVPB SCH ×3 (00:49→15:35)
[2023-01-29] MEDS: SODIUM CHLORIDE 0.9% 1,000 ML IV SCH ×2 (05:44→13:05)
[2023-01-29] MEDS: KETOROLAC 15 MG/ML 1 ML VIAL IVP SCH ×3 (06:44→13:39)
[2023-01-29] MEDS: PANTOPRAZOLE 40 MG TABLET PO SCH (06:45)
[2023-01-29] MEDS: ACETAMINOPHEN TAB 500 MG TAB PO SCH ×3 (06:45→13:41)
[2023-01-29] MEDS: LACTATED RINGERS 1,000 ML IV SCH (06:45)
[2023-01-29] MEDS: METOPROLOL SUCCINATE (ER) 50 MG TAB.ER.24H PO SCH (08:38)
[2023-01-29] MEDS: ALVIMOPAN 12 MG CAPSULE PO SCH ×2 (08:38→21:16)
[2023-01-29] MEDS: TAMSULOSIN 0.4 MG CAP.ER.24H PO SCH (08:38)
[2023-01-29] MEDS: SIMETHICONE 40 MG/0.6 ML DROPS 2,000 MG/30 ML BOTTLE PO SCH ×4 (08:38→21:17)
[2023-01-29] MEDS: GABAPENTIN 300 MG CAP PO SCH ×3 (08:38→21:16)
--- NOTE | 2023-01-29 09:59 | P.DS ---
Providers Date of admission: 01/26/23 07:42 Expected date of discharge: 01/29/23 Attending physician: Sharon Chu Consults: 01/27/23 13:12 Consult Physician Routine Consulting Provider: Jas Vincent Consult Reason/Comments: Medical management Do you want consulting provider notified?: Yes Primary care physician: Олег Smith Hospital Course: This a 77 she'll male underwent recent laparoscopic sigmoid resection. Patient did well postoperative. Please see chart for details. On the day of discharge his vital signs are stable. His abdomen was soft. His incisions are clean and intact. Procedures: Laparoscopic robotic-assisted sigmoid colectomy Patient Condition at Discharge: Good Plan - Discharge Summary Discharge Rx Participant: No New Discharge Prescriptions: New Simethicone 40 mg/0.6 ml Drops [Mylicon Drops] 40 mg PO Q6HR PRN #30 ml PRN Reason: Abdominal Distention Cyclobenzaprine [Flexeril] 10 mg PO TID #30 tab Ibuprofen [Motrin] 600 mg PO Q8HR PRN #30 tab PRN Reason: Pain Acetaminophen Tab [Tylenol Tab] 1,000 mg PO Q6HR PRN #30 tablet PRN Reason: Pain Continue Omeprazole Magnesium [PriLOSEC OTC] 20 mg PO DAILY Metoprolol Succinate (ER) [Toprol XL] 50 mg PO DAILY Tamsulosin HCl [Flomax] 0.4 mg PO DAILY Discharge Medication List Omeprazole Magnesium [PriLOSEC OTC] 20 mg PO DAILY 12/08/22 [History] Metoprolol Succinate (ER) [Toprol XL] 50 mg PO DAILY 01/24/23 [History] Tamsulosin HCl [Flomax] 0.4 mg PO DAILY 01/24/23 [History] Acetaminophen Tab [Tylenol Tab] 1,000 mg PO Q6HR PRN #30 tablet 01/27/23 [Rx] Cyclobenzaprine [Flexeril] 10 mg PO TID #30 tab 01/27/23 [Rx] Ibuprofen [Motrin] 600 mg PO Q8HR PRN #30 tab 01/27/23 [Rx] Simethicone 40 mg/0.6 ml Drops [Mylicon Drops] 40 mg PO Q6HR PRN #30 ml 01/27/23 [Rx] Follow up Appointment(s)/Referral(s): Sharon Chu MD [STAFF PHYSICIAN] - 01/31/23 (TELEHEALTH, DR WILL CALL YOU) Patient Instructions/Handouts: *Surgery [facility] - Managing Your Pain After Surgery Without Opioids, Colectomy Diet (DC), Laparoscopic Bowel Resection (DC) Activity/Diet/Wound Care/Special Instructions: EXPECT BOWEL MOVEMENT WITH BLOOD FOR 1 WEEK TAKE LAXATIVE FOR CONSTIPATION AFTER 4 DAYS, 01/31/23 Wear abdominal binder for comfort. No lifting over 4 pounds in 4 weeks February 26February shower. No bath tub soaks for two weeks until February 10 Avoid steak, tough meats and seeds such as raspberry seeds. See diverticulitis, low fiber, colectomy diet Use Tylenol and ibuprofen scheduled for the next 24-48 hours for best pain r ace. Use ice along incisions for today to prevent swelling. Discharge Disposition: HOME SELF-CARE
[2023-01-29] MEDS: HEPARIN SODIUM,PORCINE/PF 5,000 UNIT/0.5 ML SYRINGE SQ SCH ×2 (10:00→21:16)
--- NOTE | 2023-01-29 12:43 | P.PN ---
Subjective Progress Note Date: 01/29/23 This is a 77 year old male history of gerd, hypertension, former smoker. Patient is postoperative day #1 sigmoid colectomy. Patient was found to have sigmoid mass and underwent laproscopic sigmoid colectomy. Postoperative he is monitored sitting up in chair. Reports minimal abdominal discomfort. Passing gas. Has not had bowel movement yet. He is wearing abdominal binder. No other acute complaints. He wants to discharge home today. He is currently on entereg, IV cefazolin, IV metronidazole. He has fentanyl SHIPWRIGHT in place. On room air and blood pressure 119/69. Plan to remove indwelling catheter today for voiding trial. He does have history of BPH also and is maintained on flomax which has been resumed . Labs are essentially unremarkable. 01/29/2023 Patient is evaluated today sitting up at bedside. He is postoperative day #2 sigmoid colectomy, laproscopic. Patient had a small BM overnight. Reports controlled abdominal pain. Has active bowel sounds and passing more gas. He wants to go home today and is tolerating regular diet. He has abdominal binder on for support. He is afebrile and on room air. He is using incentive spirometer. He continues on home metoprolol. Review of Systems Constitutional: Denied any fatigue denied any fever. Cardio vascular: denied any chest pain, palpitations Gastrointestinal: denied any nausea, vomiting, diarrhea Pulmonary: Denied any shortness of breath cough Neurologic denied any new focal deficits All inpatient medications were reviewed and appropriate changes in these medications as dictated in the interval history and assessment and plan. PHYSICAL EXAMINATION: GENERAL: The patient is alert and oriented x3, not in any acute distress. Well developed, well nourished. HEENT: Pupils are round and equally reacting to light. EOMI. No scleral icterus. No conjunctival pallor. Normocephalic, atraumatic. No pharyngeal erythema. No thyromegaly. CARDIOVASCULAR: S1 and S2 present. No murmurs, rubs, or gallops. PULMONARY: Chest is clear to auscultation, no wheezing or crackles. ABDOMEN: Soft, nontender, nondistended, normoactive bowel sounds. No palpable organomegaly. Post surgical abdomen abdominal binder in place, laproscopic incisions are clean and dry MUSCULOSKELETAL: No joint swelling or deformity. EXTREMITIES: No cyanosis, clubbing, or pedal edema. NEUROLOGICAL: Gross neurological examination did not reveal any focal deficits. SKIN: No rashes. Assessment and Plan Assessment Hx sigmoid colon cancer had rectal bleeding patient is postoperative day #2 laproscopic sigmoid colectomy Hypertension History of BPH maintained on flomax Former smoker GI prophylaxis DVT prophylaxis as per primary Full Code Plan Continue same home medications on discharge Indwelling catheter removed and patient has passed voiding trial. Patient is medically stable for discharge has been cleared by primary Patient is encouraged to increase activity level and continue with incentive spirometer on discharge. The impression and plan of care has been dictated by Mitzi Pradhan, Nurse Practitioner as directed. Dr. Chandrakant MD I have performed a history and physical examination and medical decision making of this patient, discussed the same with the dictator, and agree with the dictators assessment and plan as written, documented as a scribe. Based on total visit time, I have performed more than 50% of this visit. Objective - Vital Signs Vital signs: Vital Signs Temp 97.5 F L 01/29/23 07:37 Pulse 63 01/29/23 07:37 Resp 17 01/29/23 07:37 BP 155/84 01/29/23 07:37 Pulse Ox 97 01/29/23 07:37 FiO2 Intake & Output 01/28/23 01/29/23 01/29/23 18:59 06:59 18:59 Output Total 850 Balance -850 Output: Urine 850 Uretheral (Tao) 550 Other: Voiding Method Toilet Urinal - Labs CBC & Chem 7: 01/27/23 18:26 01/27/23 13:55 Assessment and Plan Time with Patient: Less than 30
[2023-01-29] MEDS: HYDROmorphone 1 MG/ML 1 ML SYRINGE IVP PRN (14:50)
[2023-01-29] MEDS: fentaNYL PCA 500 MCG/50 ML BAG IV SCH (20:35)
[2023-01-30] MEDS: ACETAMINOPHEN TAB 500 MG TAB PO SCH ×3 (00:36→12:09)
[2023-01-30] MEDS: metroNIDAZOLE-NS PMX 500 MG in SALINE 1 100ML.BAG IVPB SCH ×2 (01:20→09:38)
[2023-01-30] MEDS: PANTOPRAZOLE 40 MG TABLET PO SCH (06:47)
[2023-01-30] MEDS: LACTATED RINGERS 1,000 ML IV SCH (06:48)
[2023-01-30 08:22] VITALS: BP 169/80; PULSE 65; RESP 19; TEMP 98.9
[2023-01-30] MEDS: GABAPENTIN 300 MG CAP PO SCH (08:39)
[2023-01-30] MEDS: HEPARIN SODIUM,PORCINE/PF 5,000 UNIT/0.5 ML SYRINGE SQ SCH (08:39)
[2023-01-30] MEDS: METOPROLOL SUCCINATE (ER) 50 MG TAB.ER.24H PO SCH (08:39)
[2023-01-30] MEDS: ALVIMOPAN 12 MG CAPSULE PO SCH (08:39)
[2023-01-30] MEDS: TAMSULOSIN 0.4 MG CAP.ER.24H PO SCH (08:39)
[2023-01-30] MEDS: SIMETHICONE 40 MG/0.6 ML DROPS 2,000 MG/30 ML BOTTLE PO SCH ×2 (08:43→12:09)
[2023-01-30] MEDS ORDERED: SODIUM CHLORIDE 0.9% 1,000 ML IV SCH (10:15)
[2023-01-30] MEDS ORDERED: LOSARTAN 25 MG TAB PO SCH (10:15)
[2023-01-30 11:29] LABS: African American GFR (CKD) >90 (>60 ml/min/1.73 sqM); Anion Gap 7 mmol/L; Blood Urea Nitrogen 9 mg/dL (9-20); Calcium 8.4 mg/dL (8.4-10.2); Carbon Dioxide 24 mmol/L (22-30); Chloride 108 mmol/L (98-107); Glucose 113 mg/dL (74-99); Non-African American GFR(CKD) 88 (>60 ml/min/1.73 sqM); Potassium 3.9 mmol/L (3.5-5.1); Sodium 139 mmol/L (137-145)
[2023-01-30] MEDS ORDERED: FUROSEMIDE 10 MG/ML 2 ML VIAL IV ONE (12:52)
[2023-01-30] MEDS ORDERED: POTASSIUM CHLORIDE ER 20 MEQ TAB.ER PO STA (12:52)
--- NOTE | 2023-01-30 13:18 | P.DS ---
Providers Date of admission: 01/26/23 07:42 Expected date of discharge: 01/30/23 Attending physician: Sharon Chu Consults: 01/27/23 13:12 Consult Physician Routine Consulting Provider: Jas Vincent Consult Reason/Comments: Medical management Do you want consulting provider notified?: Yes 01/30/23 10:39 Consult Physician Routine Consulting Provider: Russell Dawn Consult Reason/Comments: urinary retention Do you want consulting provider notified?: Yes Primary care physician: Олег Smith Hospital Course: Discharge diagnosis 1. Sigmoid colon cancer with rectal bleeding 2. Hypertensive heart disease 3. Obstructive uropathy due to prostate disorder 4. Sigmoid diverticulosis 5. Urinary retention Hospital course This is a 77-year-old male who presents with colon cancer. He had a colonoscopy confirming a partial large bowel obstruction with bleeding from the tumor. He is status post Robotic-assisted daVinci Xi sigmoid colectomy with low anterior r esection. Patient tolerated surgery well. Pain is controlled. He is tolerating diet. He is having bowel movements. He is ambulating. He is afebrile. He did have issues with urinary retention. That's why the discharge was held yesterday. Patient had Tao catheter placed. Flomax dose increased to bid. He has been seen by urology. Patient has been cleared for discharge with Tao catheter bag and outpatient follow-up. Patient is stable for discharge. Physician Blanching Machine Operator note has been reviewed by physician. Signing provider agrees with the documented findings, assessment, and plan of care. Patient Condition at Discharge: Stable Plan - Discharge Summary Discharge Rx Participant: No New Discharge Prescriptions: New Simethicone 40 mg/0.6 ml Drops [Mylicon Drops] 40 mg PO Q6HR PRN #30 ml PRN Reason: Abdominal Distention Cyclobenzaprine [Flexeril] 10 mg PO TID #30 tab Ibuprofen [Motrin] 600 mg PO Q8HR PRN #30 tab PRN Reason: Pain Acetaminophen Tab [Tylenol Tab] 1,000 mg PO Q6HR PRN #30 tablet PRN Reason: Pain Tamsulosin HCl [Flomax] 0.4 mg PO BID 7 Days #14 cap Continue Omeprazole Magnesium [PriLOSEC OTC] 20 mg PO DAILY Metoprolol Succinate (ER) [Toprol XL] 50 mg PO DAILY Discontinued Tamsulosin HCl [Flomax] 0.4 mg PO DAILY Discharge Medication List Omeprazole Magnesium [PriLOSEC OTC] 20 mg PO DAILY 12/08/22 [History] Metoprolol Succinate (ER) [Toprol XL] 50 mg PO DAILY 01/24/23 [History] Acetaminophen Tab [Tylenol Tab] 1,000 mg PO Q6HR PRN #30 tablet 01/27/23 [Rx] Cyclobenzaprine [Flexeril] 10 mg PO TID #30 tab 01/27/23 [Rx] Ibuprofen [Motrin] 600 mg PO Q8HR PRN #30 tab 01/27/23 [Rx] Simethicone 40 mg/0.6 ml Drops [Mylicon Drops] 40 mg PO Q6HR PRN #30 ml 01/27/23 [Rx] Tamsulosin HCl [Flomax] 0.4 mg PO BID 7 Days #14 cap 01/30/23 [Rx] Follow up Appointment(s)/Referral(s): Russell Dawn MD [STAFF PHYSICIAN] - 1 Week Sharon Chu MD [STAFF PHYSICIAN] - 01/31/23 (TELEHEALTH, WILL CALL YOU) Patient Instructions/Handouts: *[facility] - Managing Your Pain After Surgery Without Opioids, Urinary Leg Bag (GEN), Colectomy Diet (DC), Tao Catheter Removal (DC), Laparoscopic Bowel Resection (DC), How to Change a Catheter Drainage Bag (DC) Activity/Diet/Wound Care/Special Instructions: EXPECT BOWEL MOVEMENT WITH BLOOD FOR 1 WEEK TAKE LAXATIVE FOR CONSTIPATION AFTER 4 DAYS, 01/31/23 Wear abdominal binder for comfort. No lifting over 4 pounds in 4 weeks February 26February shower. No bath tub soaks for two weeks until February 10 Avoid steak, tough meats and seeds such as raspberry seeds. See diverticulitis, low fiber, colectomy diet Use Tylenol and ibuprofen scheduled for the next 24-48 hours for best pain relief. Use ice along incisions for today to prevent swelling. Urology: - Continue taking Flomax twice daily - Follow up with Ash Turner in the office in one week - Remove Tao catheter 6-8 hours prior to appointment Discharge Disposition: HOME SELF-CARE
--- NOTE | 2023-01-30 13:34 | P.GSCN ---
History of Present Illness Consult date: 01/30/23 Reason for Consult: Urinary retention Requesting physician: Dulce Watson History of present illness: The patient is a 77 year old male history of hypertension, GERD, former smoker. Patient is POD #4 sigmoid colectomy. Patient was found to have sigmoid mass and underwent laproscopic sigmoid colectomy with Dr. Aldridge. The patient's Lu catheter was removed postoperatively. The patient has been having significant urinary retention since with PVR's of 400-500ml's and his Lu catheter was reinserted on 01/29/23. The patient has a history of BPH and has been maintained on Flomax prescibed by his PCP. He has never seen a urologist. Review of Systems - Constitutional Denies chills, Denies fever - Cardiovascular Denies chest pain, Denies shortness of breath - Gastrointestinal Denies abdominal pain, Denies nausea, Denies vomiting - Genitourinary Reports urinary frequency, Reports urinary retention, Denies dysuria, Denies hematuria Past Medical History Past Medical History: Cancer, GERD/Reflux, Hyperlipidemia, Hypertension, Osteoarthritis (OA), Prostate Disorder Additional Past Medical History / Comment(s): melanoma, joint pain, hx of shingles, states hx blood in stool. History of Any Multi-Drug Resistant Organisms: None Reported Past Surgical History: Adenoidectomy, Tonsillectomy Additional Past Surgical History / Comment(s): T & A (CHILD), COLONOSCOPY 01/26/23, sigmoid resection planned for 01/27/23 Past Anesthesia/Blood Transfusion Reactions: No Reported Reaction Additional Past Anesthesia/Blood Transfusion Reaction / Comm: no blood tx hx Past Psychological History: No Psychological Hx Reported Smoking Status: Former smoker Past Alcohol Use History: Occasional Additional Past Alcohol Use History / Comment(s): quit smoking at 63 yrs old .,started smoking at age 19 Past Drug Use History: None Reported - Past Family History Mother Family Medical History: Coronary Artery Disease (CAD) Medications and Allergies Home Medications Medication Instructions Recorded Confirmed Type Omeprazole Magnesium [PriLOSEC OTC] 20 mg PO DAILY 12/08/22 01/26/23 History Metoprolol Succinate (ER) [Toprol 50 mg PO DAILY 01/24/23 01/26/23 History XL] Tamsulosin HCl [Flomax] 0.4 mg PO DAILY 01/24/23 01/26/23 History Acetaminophen Tab [Tylenol Tab] 1,000 mg PO Q6HR PRN #30 tablet 01/27/23 Rx Cyclobenzaprine [Flexeril] 10 mg PO TID #30 tab 01/27/23 Rx Ibuprofen [Motrin] 600 mg PO Q8HR PRN #30 tab 01/27/23 Rx Simethicone 40 mg/0.6 ml Drops 40 mg PO Q6HR PRN #30 ml 01/27/23 Rx [Mylicon Drops] Allergies Allergy/AdvReac Type Severity Reaction Status Date / Time No Known Allergies Allergy Verified 01/26/23 07:27 Surgical - Exam Vital Signs Temp Pulse Resp BP Pulse Ox 98.6 F 81 18 178/79 99 01/26/23 07:38 01/26/23 07:38 01/26/23 07:38 01/26/23 07:38 01/26/23 07:38 General: Well developed, well nourished. No acute distress. HEENT: Head is atraumatic, normocephalic. Lungs: Respirations even and nonlabored. On RA Abdomen/GI: Soft, non-distended. Obese. Abdominal binder in place. Lap incisions are tender. : No suprapubic tenderness. Lu catheter draining clear yellow urine Skin: Warm and dry Neurologic: Alert and oriented 3, CN II-XII grossly intact. No focal deficits. Psychiatric: Appropriate mood and affect. Results - Labs 01/27/23 18:26 01/30/23 10:37 Abnormal Lab Results - Last 24 Hours (Table) 01/30/23 Range/Units 10:37 Chloride 108 H (98-107) mmol/L Glucose 113 H (74-99) mg/dL Diabetes panel 01/30/23 Range/Units 10:37 Sodium 139 (137-145) mmol/L Potassium 3.9 (3.5-5.1) mmol/L Chloride 108 H (98-107) mmol/L Carbon Dioxide 24 (22-30) mmol/L BUN 9 (9-20) mg/dL Creatinine 0.78 (0.66-1.25) mg/dL Glucose 113 H (74-99) mg/dL Calcium 8.4 (8.4-10.2) mg/dL Calcium panel 01/30/23 Range/Units 10:37 Calcium 8.4 (8.4-10.2) mg/dL Pituitary panel 01/30/23 Range/Units 10:37 Sodium 139 (137-145) mmol/L Potassium 3.9 (3.5-5.1) mmol/L Chloride 108 H (98-107) mmol/L Carbon Dioxide 24 (22-30) mmol/L BUN 9 (9-20) mg/dL Creatinine 0.78 (0.66-1.25) mg/dL Glucose 113 H (74-99) mg/dL Calcium 8.4 (8.4-10.2) mg/dL Adrenal panel 01/30/23 Range/Units 10:37 Sodium 139 (137-145) mmol/L Potassium 3.9 (3.5-5.1) mmol/L Chloride 108 H (98-107) mmol/L Carbon Dioxide 24 (22-30) mmol/L BUN 9 (9-20) mg/dL Creatinine 0.78 (0.66-1.25) mg/dL Glucose 113 H (74-99) mg/dL Calcium 8.4 (8.4-10.2) mg/dL Assessment and Plan Assessment: The patient was seen sitting up in the chair. He reports having urinary fr equency due to incomplete emptying of his bladder prior to admission. He is maintained on Flomax at home. He denies any dysuria or hematuria. No history of cancer or kidney stones. No previous urological surgeries. Urinary retention likely due to anesthesia, pain medication, and decreased activity level. The patient is stable to be discharged with his Lu catheter from a urological standpoint. His Flomax has already been increased by the surgical PA to 0.4mg twice daily. Follow up with Dr. Dawn in one week. The patient was instructed on how to remove his Lu catheter at home 6-8 hours before appointment. (1) Postoperative urinary retention Current Visit: Yes Status: Acute Code(s): N99.89 - OTH POSTPROCEDURAL COMPLICATIONS AND DISORDERS OF SYS; R33.8 - OTHER RETENTION OF URINE SNOMED Code(s): 728934487 Plan: - Continue Flomax twice daily - May discharge home with Lu catheter - Follow up with Dr. Dawn in one week Thank you for this consultation Impression and plan of care have been directed as dictated by the signing physician. Courtney Sanders nurse practitioner acting as scribe for signing physician. Courtney Sanders [facility] Palliative Care/Urology Spectralink [phone] Email: [email or web address]
--- NOTE | 2023-01-30 16:15 | P.PN ---
Subjective Progress Note Date: 01/30/23 This is a 77 year old male history of gerd, hypertension, former smoker. Patient is postoperative day #1 sigmoid colectomy. Patient was found to have sigmoid mass and underwent laproscopic sigmoid colectomy. Postoperative he is monitored sitting up in chair. Reports minimal abdominal discomfort. Passing gas. Has not had bowel movement yet. He is wearing abdominal binder. No other acute complaints. He wants to discharge home today. He is currently on entereg, IV cefazolin, IV metronidazole. He has fentanyl RANGE RIDER in place. On room air and blood pressure 119/69. Plan to remove indwelling catheter today for voiding trial. He does have history of BPH also and is maintained on flomax which has been resumed . Labs are essentially unremarkable. 01/29/2023 Patient is evaluated today sitting up at bedside. He is postoperative day #2 sigmoid colectomy, laproscopic. Patient had a small BM overnight. Reports controlled abdominal pain. Has active bowel sounds and passing more gas. He wants to go home today and is tolerating regular diet. He has abdominal binder on for support. He is afebrile and on room air. He is using incentive spirometer. He continues on home metoprolol. 01/30/2023 Patient is evaluated today he is postoperative day #2 sigmoid colectomy. Patient is having bowel movements and passing gas. He is tolerating diet. IV fluids were stopped yesterday patient developed some mild lower extremity edema and he is given a dose of IV Lasix. Patient had issues with urinary retention yesterday which held up discharge he had IDC inserted urology saw patient today and recommending follow up in the office for voiding trial. Kidney function is normal today. Patient does have history of BPH on flomax by his PCP. Blood pressure elevated at 169/80 and patient was also started on low dose losartan at 25 mg daily. Review of Systems Constitutional: Denied any fatigue denied any fever. Cardio vascular: denied any chest pain, palpitations Gastrointestinal: denied any nausea, vomiting, diarrhea Pulmonary: Denied any shortness of breath cough Neurologic denied any new focal deficits All inpatient medications were reviewed and appropriate changes in these medications as dictated in the interval history and assessment and plan. PHYSICAL EXAMINATION: GENERAL: The patient is alert and oriented x3, not in any acute distress. Well developed, well nourished. HEENT: Pupils are round and equally reacting to light. EOMI. No scleral icterus. No conjunctival pallor. Normocephalic, atraumatic. No pharyngeal erythema. No thyromegaly. CARDIOVASCULAR: S1 and S2 present. No murmurs, rubs, or gallops. PULMONARY: Chest is clear to auscultation, no wheezing or crackles. ABDOMEN: Soft, nontender, nondistended, normoactive bowel sounds. No palpable organomegaly. Post surgical abdomen abdominal binder in place, laproscopic incisions are clean and dry MUSCULOSKELETAL: No joint swelling or deformity. EXTREMITIES: No cyanosis, clubbing, or pedal edema. NEUROLOGICAL: Gross neurological examination did not reveal any focal deficits. SKIN: No rashes. 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 Patient to d/c with IDC and sees urology in the office in one week. Patient is medically stable for discharge has been cleared by primary Patient is encouraged to increase activity level and continue with incentive spirometer on discharge. The impression and plan of care has been dictated by Nurse Clem Pr actitioner as directed. Dr. Chandrakant MD I have performed a history and physical examination and medical decision making of this patient, discussed the same with the dictator, and agree with the dicta tors assessment and plan as written, documented as a scribe. Based on total visit time, I have performed more than 50% of this visit. Objective - Vital Signs Vital signs: Vital Signs Temp 98.9 F 01/30/23 07:24 Pulse 65 01/30/23 07:24 Resp 19 01/30/23 07:24 BP 169/80 01/30/23 07:24 Pulse Ox 97 01/30/23 07:24 FiO2 Intake & Output 01/29/23 01/30/23 01/30/23 18:59 06:59 18:59 Output Total 225 550 950 Balance -225 -550 -950 Output: Urine 225 550 950 Other: Voiding Method Indwelling Catheter Indwelling Catheter - Labs CBC & Chem 7: 01/27/23 18:26 01/30/23 10:37 Labs: Abnormal Lab Results - Last 24 Hours (Table) 01/30/23 Range/Units 10:37 Chloride 108 H (98-107) mmol/L Glucose 113 H (74-99) mg/dL Assessment and Plan Time with Patient: Less than 30
[2023-01-30] MEDS ORDERED: TAMSULOSIN 0.4 MG CAP.ER.24H PO SCH (21:00)
== END 2023-01-30 15:02 | disposition home or self-care (01) | DRG 330 ==
LOC: ORWHC2ENDO 07:02 → 4SSUR 07:42
PROVIDERS: ADMIT Surgery Plastic and Reconstructive Surgery; ATTEND Surgery Plastic and Reconstructive Surgery
PROC: 3E0H8KZ Introduction of Other Diagnostic Substance into Lower GI, Via Natural or Artificial Opening Endoscopic (ICD-10-PCS; 2023-01-26)
PROC: 0DJD8ZZ Inspection of Lower Intestinal Tract, Via Natural or Artificial Opening Endoscopic (ICD-10-PCS; 2023-01-26)
PROC: 0D1N4Z4 Bypass Sigmoid Colon to Cutaneous, Percutaneous Endoscopic Approach (ICD-10-PCS; 2023-01-27)
PROC: 0DTP4ZZ Resection of Rectum, Percutaneous Endoscopic Approach (ICD-10-PCS; 2023-01-27)
PROC: 8E0W8CZ Robotic Assisted Procedure of Trunk Region, Via Natural or Artificial Opening Endoscopic (ICD-10-PCS; 2023-01-27)
PROC: 3E0T3BZ Introduction of Anesthetic Agent into Peripheral Nerves and Plexi, Percutaneous Approach (ICD-10-PCS; 2023-01-27)
PROC: 0DTNFZZ Resection of Sigmoid Colon, Via Natural or Artificial Opening With Percutaneous Endoscopic Assistance (ICD-10-PCS; principal; 2023-01-27 07:30)
DX: C18.7 Malignant neoplasm of sigmoid colon (principal); K56.600 Partial intestinal obstruction, unspecified as to cause; N13.8 Other obstructive and reflux uropathy; Q43.8 Other specified congenital malformations of intestine; K62.5 Hemorrhage of anus and rectum; I11.9 Hypertensive heart disease without heart failure; D63.0 Anemia in neoplastic disease; N40.1 Benign prostatic hyperplasia with lower urinary tract symptoms; K64.4 Residual hemorrhoidal skin tags; K64.8 Other hemorrhoids; K57.30 Diverticulosis of large intestine without perforation or abscess without bleeding; E78.5 Hyperlipidemia, unspecified; K21.9 Gastro-esophageal reflux disease without esophagitis; R33.8 Other retention of urine; R60.0 Localized edema; Z87.891 Personal history of nicotine dependence; Z85.820 Personal history of malignant melanoma of skin; Z79.899 Other long term (current) drug therapy; Z86.19 Personal history of other infectious and parasitic diseases
CPT/HCPCS: 44404; 64999; 76942; 80048; 80053; 85025; 86850; 86900; 86901; 88309

== ENCOUNTER → 2023-08-23 | Outpatient (CLI) | payer MEDICARE ==
[2023-08-23 12:18] LABS: African American GFR (CKD) 72 (>60 ml/min/1.73 sqM); Blood Urea Nitrogen 16 mg/dL (9-20); Non-African American GFR(CKD) 62 (>60 ml/min/1.73 sqM)
--- NOTE | 2023-08-24 21:31 | CT ---
EXAMINATION TYPE: CT ChestAbdPelvis w con DATE OF EXAM: 08/23/2023 COMPARISON: 12/14/2022 HISTORY: 77-year-old male C18.7, f/u sigmoid colon ca TECHNIQUE: Contiguous axial scanning of the chest, abdomen, and pelvis performed with IV Contrast, pa tient injected with 100 mL of Isovue 300. Delayed images through the kidneys were obtained. Coronal/s agittal reconstructions performed. CT DLP: 1611 mGycm Automated exposure control for dose reduction was used. FINDINGS: CHEST: The heart is normal size without pericardial effusion. Aorta normal caliber with conventional arch vessel branching anatomy. No thoracic lymphadenopathy by CT size criteria. Mild to moderate bilateral gynecomastia incidentally noted. Some mild strandy atelectasis in the lungs. There is mild to moderate centrilobular emphysema present . Mild diffuse bronchial wall thickening. Findings in keeping with underlying COPD. No consolidation or pleural effusion. ABDOMEN: There is a small hiatal hernia. No focal liver lesion or biliary ductal dilatation. Portal venous system is patent. Gallbladder, adrenal glands, kidneys, spleen, and pancreas are within normal limits. No dilated small bowel, free fluid, or free air. No mesenteric or retroperitoneal lymphadenopathy. Mild to moderate scattered plaque throughout the infrarenal abdominal aorta and common iliac arteries without aneurysm. Normal appendix. Scattered mild stool is present. Oral contrast progressed to the distal sigmoid colo n. Scattered left-sided colonic diverticulosis without pericolonic inflammatory change seen. Interval resection and re-anastomosis at the level of the mid sigmoid colon. The previous segment con taining the patient's mid to distal sigmoid colonic mass has been removed. No residual mass is identi fied. PELVIS: Bladder is urine distended. Prostate gland 5.0 cm wide with some central calcification. No abnormal f luid collection in the pelvis or pelvic lymphadenopathy. BONES: Prominent anterior and plate spondylosis mid to lower thoracic spine. Moderate spondylotic change thr oughout the lumbar spine. No osseous destructive process. Mild degenerative change of the hips and ewelina th SI joints. IMPRESSION: 1. INTERVAL RESECTION AND REANASTOMOSIS ALONG THE MID SIGMOID COLON WITH REMOVAL OF THE PATIENT'S PRE VIOUS SIGMOID COLON MASS. 2. NO EVIDENCE FOR RESIDUAL OR METASTATIC DISEASE WITHIN THE CHEST, ABDOMEN, OR PELVIS. 3. INCIDENTAL: COPD WITH MILD TO MODERATE EMPHYSEMA, SMALL HIATAL HERNIA, LEFT-SIDED COLONIC DIVERTIC ULOSIS, AND PROSTATOMEGALY AT 5.0 CM WIDE.
== END | disposition home or self-care (01) ==
LOC: RADCTMAIN 11:36
PROVIDERS: ATTEND Internal Medicine Hematology & Oncology
DX: C18.7 Malignant neoplasm of sigmoid colon (principal); I10 Essential (primary) hypertension; Z71.3 Dietary counseling and surveillance; Z98.890 Other specified postprocedural states
CPT/HCPCS: 82565; 84520; 71260; 74177; 36415; Q9967

== ENCOUNTER 2023-09-14 07:13 | Day surgery (SDC) | payer MEDICARE ==
[2023-09-13 09:31] VITALS: BMI 29.7
[~2023-09-14 07:13] MED LIST: LACTATED RINGERS 1,000 ML IV SCH
--- NOTE | 2023-09-14 07:45 | P.GSHP ---
History of Present Illness H&P Date: 09/14/23 CHIEF COMPLAINT: Colon screen HISTORY OF PRESENT ILLNESS: The patient is a 77-year-old male who presents for colon screen. Lower endoscopy was offered for further evaluation and management. PAST MEDICAL HISTORY: Please see list. PAST SURGICAL HISTORY: Please see list. MEDICATIONS: Please see list. ALLERGIES: Please see list. SOCIAL HISTORY: No illicit drug use FAMILY HISTORY: No reports of Crohn disease or ulcerative colitis. REVIEW OF ORGAN SYSTEMS: CONSTITUTIONAL: No reports of fevers or chills. PHYSICAL EXAM: VITAL SIGNS: Stable GENERAL: Well-developed pleasant in no acute distress. HEENT: No scleral icterus. Extraocular movements grossly intact. Moist buccal mucosa. NECK: Supple without lymphadenopathy. CHEST: Unlabored respirations. Equal bilateral excursions. CARDIOVASCULAR: Regular rate and rhythm. Distal 2+ pulses. ABDOMEN: Soft, nontender, nondistended. MUSCULOSKELETAL: No clubbing, cyanosis, or edema. ASSESSMENT: 1. Colon screen. PLAN: 1. Recommend proceeding with a lower endoscopy Past Medical History Past Medical History: Cancer, GERD/Reflux, Osteoarthritis (OA) Additional Past Medical History / Comment(s): melanoma, joint pain, hx of shingles, states hx blood in stool. 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 History of Any Multi-Drug Resistant Organisms: None Reported Past Surgical History: Adenoidectomy, Bowel Resection, Tonsillectomy Additional Past Surgical History / Comment(s): T & A (CHILD), COLONOSCOPY 01/26/23, sigmoid resection planned for 01/27/23 Past Anesthesia/Blood Transfusion Reactions: No Reported Reaction Additional Past Anesthesia/Blood Transfusion Reaction / Comment(s): no blood tx hx Smoking Status: Former smoker - Past Family History Mother Family Medical History: Coronary Artery Disease (CAD) Medications and Allergies Home Medications Medication Instructions Recorded Confirmed Type RX: Omeprazole Magnesium [PriLOSEC 20 mg PO DAILY 12/08/22 09/14/23 History OTC] RX: Metoprolol Succinate (ER) 50 mg PO DAILY 01/24/23 09/14/23 History [Toprol XL] Acetaminophen Tab [Tylenol Tab] 1,000 mg PO Q6HR PRN #30 tablet 01/27/23 09/14/23 Rx RX: Ibuprofen [Motrin] 600 mg PO Q8HR PRN #30 tab 01/27/23 09/14/23 Rx RX: Losartan [Cozaar] 25 mg PO DAILY #30 tab 01/30/23 09/14/23 Rx Tamsulosin HCl [Flomax] 0.4 mg PO BID 7 Days #14 cap 01/30/23 09/14/23 Rx HYDROcodone/APAP 5-325MG [Eva 1 tab PO Q4HR PRN 09/13/23 09/14/23 History 5-325] Allergies Allergy/AdvReac Type Severity Reaction Status Date / Time cyclobenzaprine AdvReac Rash/Hives Verified 09/14/23 07:34 [From Flexeril]
[2023-09-14] MEDS ORDERED: PROPOFOL 10 MG/ML 20 ML VIAL IV ONE (07:48)
[2023-09-14] MEDS ORDERED: LIDOCAINE 1% INJ 10MG/ML (20 ML MDV) ONE (07:48)
[2023-09-14 08:12] VITALS: TEMP 98.4
--- NOTE | 2023-09-14 08:18 | P.PCN ---
Date of Procedure: 09/14/23 Description of Procedure: PREOPERATIVE DIAGNOSIS: History of sigmoid colon cancer status post colectomy Colonoscopy surveillance POSTOPERATIVE DIAGNOSIS: History of sigmoid colon cancer status post colectomy Colonoscopy surveillance Diverticulosis, scattered. OPERATION: Colonoscopy to the cecum, ileocecal valve and appendiceal orifice. SURGEON: Sharon Chu MD. ANESTHESIA: MAC. INDICATIONS: The patient is a 77-year-old male who presents for colonoscopy surveillance status post colectomy 2021 for sigmoid colon cancer. Benefits and risks were described and informed consent was obtained. DESCRIPTION OF PROCEDURE: The patient had undergone Golytely prep. The patient had been brought into the operating room and laid in the left lateral decubitus position. After adequate intravenous sedation, the rectum was examined with 2% lidocaine jelly. Prostate was unremarkable. No external hemorrhoids were encountered. The rectal tone was within normal limits. No lesions were palpated in the rectal vault. An Olympus colonoscope was advanced until the cecum, ileocecal valve and appendiceal lan fice were clearly viewed. The prep was excellent. Scattered diverticulosis was encountered. No colonic polyps were found. No evidence of focal colitis was found. Anastomosis unremarkable. Retroflexion of the scope demonstrated grade 1 internal hemorrhoids without active bleeding or inflammation. The colon was desufflated. The patient had tolerated the procedure well. Withdrawal time was over 6 minutes. FINDINGS: Aronchick preparation quality scale 1 Internal hemorrhoids, grade 1 No external prolapsed hemorrhoids. No arteriovenous malformations. No adenomatous polyps. No focal colitis. Colorectal anastomosis unremarkable Sigmoid diverticulosis RECOMMENDATIONS: Lower endoscopy in one year, 2023 and yearly through 2027 for colon cancer surveillance Plan - Discharge Summary Discharge Rx Participant: No New Discharge Prescriptions: Continue Omeprazole Magnesium [PriLOSEC OTC] 20 mg PO DAILY Metoprolol Succinate (ER) [Toprol XL] 50 mg PO DAILY Losartan [Cozaar] 25 mg PO DAILY #30 tab Tamsulosin HCl [Flomax] 0.4 mg PO BID 7 Days #14 cap HYDROcodone/APAP 5-325MG [[place] 5-325] 1 tab PO Q4HR PRN PRN Reason: Pain Discontinued Ibuprofen [Motrin] 600 mg PO Q8HR PRN #30 tab PRN Reason: Pain Acetaminophen Tab [Tylenol Tab] 1,000 mg PO Q6HR PRN #30 tablet PRN Reason: Pain Discharge Medication List Omeprazole Magnesium [PriLOSEC OTC] 20 mg PO DAILY 12/08/22 [History] Metoprolol Succinate (ER) [Toprol XL] 50 mg PO DAILY 01/24/23 [History] Losartan [Cozaar] 25 mg PO DAILY #30 tab 01/30/23 [Rx] Tamsulosin HCl [Flomax] 0.4 mg PO BID 7 Days #14 cap 01/30/23 [Rx] HYDROcodone/APAP 5-325MG [[place] 5-325] 1 tab PO Q4HR PRN 09/13/23 [History] Follow up Appointment(s)/Referral(s): Sharon Chu MD [STAFF PHYSICIAN] - As Needed Patient Instructions/Handouts: Diverticulosis (DC), Diverticulosis Diet (GEN) Activity/Diet/Wound Care/Special Instructions: Repeat colonoscopy 2023 through yearly, 2027 Discharge Disposition: HOME SELF-CARE
[2023-09-14 08:36] VITALS: BP 138/77; PULSE 71; RESP 17
== END 2023-09-14 08:50 | disposition home or self-care (01) ==
LOC: ORWHC2ENDO 07:13
PROVIDERS: ATTEND Surgery Plastic and Reconstructive Surgery
DX: Z12.11 Encounter for screening for malignant neoplasm of colon (principal); K57.30 Diverticulosis of large intestine without perforation or abscess without bleeding; K64.0 First degree hemorrhoids; Z85.038 Personal history of other malignant neoplasm of large intestine; K21.9 Gastro-esophageal reflux disease without esophagitis; M19.90 Unspecified osteoarthritis, unspecified site; Z85.820 Personal history of malignant melanoma of skin; Z90.89 Acquired absence of other organs; Z87.891 Personal history of nicotine dependence; Z82.49 Family history of ischemic heart disease and other diseases of the circulatory system; Z79.899 Other long term (current) drug therapy
CPT/HCPCS: G0105; J2001; J2704; 45378

== ENCOUNTER 2025-04-09 16:49 | Emergency (ER) | payer MEDICARE ==
--- NOTE | 2025-04-09 17:11 | ED ---
Eye Problem HPI - General Chief complaint: Eye Problems Stated complaint: Right Eye Issue Time Seen by Provider: 04/09/25 16:56 Source: patient, RN notes reviewed Mode of arrival: wheelchair Limitations: no limitations - History of Present Illness Initial comments: 79-year-old male presenting to the emergency department with his for concerns of foreign body sensation to his right eye. Patient states that he was doing work around his house when he believes that he may have had something stuck in his eye. He states that his helped him wash out his eye however still feels like there is something in it. He denies contact lens use. Denies blurry or double vision. Unaware of last tetanus vaccination was. - Related Data Home Medications Medication Instructions Recorded Confirmed Omeprazole Magnesium [PriLOSEC OTC] 20 mg PO DAILY 12/08/22 09/14/23 Metoprolol Succinate (ER) [Toprol 50 mg PO DAILY 01/24/23 09/14/23 XL] HYDROcodone/APAP 5-325MG [Pomona 1 tab PO Q4HR PRN 09/13/23 09/14/23 5-325] Previous Rx's Medication Instructions Recorded Losartan [Cozaar] 25 mg PO DAILY #30 tab 01/30/23 Tamsulosin HCl [Flomax] 0.4 mg PO BID 7 Days #14 cap 01/30/23 Allergies Allergy/AdvReac Type Severity Reaction Status Date / Time cyclobenzaprine AdvReac Rash/Hives Verified 04/09/25 16:53 [From Flexeril] Review of Systems ROS Statement: Those systems with pertinent positive or pertinent negative responses have been documented in the HPI. ROS Other: All systems not noted in ROS Statement are negative. Past Medical History Past Medical History: Cancer, GERD/Reflux, Osteoarthritis (OA) Additional Past Medical History / Comment(s): melanoma, joint pain, hx of shingles, states hx blood in stool. History of Any Multi-Drug Resistant Organisms: None Reported Past Surgical History: Adenoidectomy, Tonsillectomy Additional Past Surgical History / Comment(s): T & A (CHILD), COLONOSCOPY 01/26/23, sigmoid resection planned for 01/27/23 Past Anesthesia/Blood Transfusion Reactions: No Reported Reaction Additional Past Anesthesia/Blood Transfusion Reaction / Comment(s): no blood tx hx Past Psychological History: No Psychological Hx Reported Past Alcohol Use History: Occasional - Past Family History Mother Family Medical History: Coronary Artery Disease (CAD) General Exam Limitations: no limitations Expanded Eyelids: Normal Inspection: Bilateral Pupils: Regular, Round: Bilateral Sclera/Conjunctival: Normal Inspection: Bilateral, Injection: Right Neck exam: Present: normal inspection. Absent: tenderness, meningismus, lymphadenopathy Respiratory exam: Present: normal lung sounds bilaterally. Absent: respiratory distress, wheezes, rales, rhonchi, stridor Cardiovascular Exam: Present: regular rate, normal rhythm, normal heart sounds. Absent: systolic murmur, diastolic murmur, rubs, gallop, clicks GI/Abdominal exam: Present: soft, normal bowel sounds. Absent: distended, tenderness, guarding, rebound, rigid Extremities exam: Present: normal inspection, full ROM, normal capillary refill. Absent: tenderness, pedal edema, joint swelling, calf tenderness Course Vital Signs 04/09/25 16:51 Temperature 97.7 F Pulse Rate 56 L Respiratory 16 Rate Blood Pressure 150/81 O2 Sat by Pulse 96 Oximetry Medical Decision Making - Medical Decision Making Was pt. sent in by a medical professional or institution (Dr. PA, [employer]PER[employer] HELPER, urgent care, hospital, or group home...) When possible be specific @ -No Did you speak to anyone other than the patient for history (EMS, parent, family, police, friend...)? What history was obtained from this source @ -No Did you review nursing and triage notes (agree or disagree)? Why? @ -I reviewed and agree with nursing and triage notes Were old charts reviewed (outside hosp., previous admission, EMS record, old EKG, old radiological studies, urgent care reports/EKG's, group home records)? Report findings @ -No old charts were reviewed Differential Diagnosis (chest pain, altered mental status, abdominal pain women, abdominal pain men, vaginal bleeding, weakness, fever, dyspnea, syncope, headache, dizziness, GI bleed, back pain, seizure, CVA, palpatations, mental health, musculoskeletal)? @ -corneal abrasion,corneal ulceration, foreign body in eye, this list is not all inclusive EKG interpreted by me (3pts min.). @ -none X-rays interpreted by me (1pt min.). @ -None done CT interpreted by me (1pt min.). @ -None done U/S interpreted by me (1pt. min.). @ -None done What testing was considered but not performed or refused? (CT, X-rays, U/S, labs)? Why? @ -None What meds were considered but not given or refused? Why? @ -None Did you discuss the management of the patient with other professionals (professionals i.e. Dr., PA, [employer]PER[employer] HELPER, lab, RT, psych nurse, social worker palliative care, box chipper, teacher, activities officer, embedded case manager)? Give summary @ -No Was smoking cessation discussed for >3mins.? @ -No Was critical care preformed (if so, how long)? @ -No Were there social determinants of health that impacted care today? How? (Homelessness, low income, unemployed, alcoholism, drug addiction, transportation, low edu. Level, literacy, decrease access to med. care, long-term, rehab)? @ -No Was there de-escalation of care discussed even if they declined (Discuss DNR or withdrawal of care, Hospice)? DNR status @ -No What co-morbidities impacted this encounter? (DM, HTN, Smoking, COPD, CAD, Cancer, CVA, ARF, Chemo, Hep., AIDS, mental health diagnosis, sleep apnea, morbid obesity)? @ -None Was patient admitted / discharged? Hospital course, mention meds given and route, prescriptions, significant lab abnormalities, going to OR and other pertinent info. @ -Discharge. 71-year-old male presenting with foreign body sensation in the right eye. Proparacaine drops used to anesthetize the eye and fluorescein stain used with direct visualization under Soto lamp to reveal a corneal abrasion. Patient's visual acuity is intact. He is up-to-date on tetanus vaccination is provided with topical ciprofloxacin drops. Recommend patient continue to use antibiotic drops. Case discussed with Dr. Best Undiagnosed new problem with uncertain prognosis? @ -No Drug Therapy requiring intensive monitoring for toxicity (Heparin, Nitro, Insulin, Cardizem)? @ -No Were any procedures done? @ -No Diagnosis/symptom? @ -corneal abrasion Acute, or Chronic, or Acute on Chronic? @ -acute Uncomplicated (without systemic symptoms) or Complicated (systemic symptoms)? @ -uncomplicated Side effects of treatment? @ -No Exacerbation, Progression, or Severe Exacerbation? @ -No Poses a threat to life or bodily function? How? (Chest pain, [place], CA, pneumonia, PE, COPD, DKA, ARF, appy, cholecystitis, CVA, Diverticulitis, Homicidal, Suicidal, threat to staff... and all critical care pts) @ -No Disposition Clinical Impression: Corneal abrasion, right Disposition: HOME SELF-CARE Condition: Good Instructions (If sedation given, give patient instructions): Corneal Abrasion (ED) Additional Instructions: Please return to the Emergency Department if symptoms worsen or any other concerns. Continue to use topical antibiotic drops, 2 drops in the affected eye every 6 hours for 5 days. Is patient prescribed a controlled substance at d/c from ED?: No Referrals: Олег Smith MD [Primary Care Provider] - 1-2 days Time of Disposition: 17:37
[2025-04-09] MEDS: FLUORESCEIN STRIPS 1 MG STRIP RIGHT EYE ONE (17:25)
[2025-04-09] MEDS: PROPARACAINE 0.5% OPHTH DROPS 15 ML BTL RIGHT EYE STA (17:25)
[2025-04-09] MEDS: DIPH,PERTUS(ACELL)TETVAC-LF 0.5 ML VIAL IM ONE (17:53)
[2025-04-09] MEDS: CIPROFLOXACIN 0.3% OPHTH SOLN 5 ML BTL RIGHT EYE STA (18:09)
[2025-04-09 18:24] VITALS: BP 146/72; PULSE 54; RESP 18; TEMP 98.1
== END 2025-04-09 18:20 | disposition home or self-care (01) ==
LOC: EC 16:49
DX: S05.01XA Injury of conjunctiva and corneal abrasion without foreign body, right eye, initial encounter (principal); Z88.8 Allergy status to other drugs, medicaments and biological substances; Z23 Encounter for immunization; W44.9XXA Unspecified foreign body entering into or through a natural orifice, initial encounter
CPT/HCPCS: 90471; 90715; 99283